=== PATIENT | female | born 1980 | race Caucasian/White ===

== ENCOUNTER 2016-07-17 09:28 | Emergency (ER) | payer SELFPAY ==
[2016-07-17] MEDS ORDERED: diphenhydrAMINE 50 MG/ML SDV IVPUSH ONE (10:14)
--- NOTE | 2016-07-17 10:18 | EDM.PDOC ---
ED HPI GENERAL MEDICAL PROBLEM - General Chief Complaint: Allergic Reaction Stated Complaint: SWELLING EVERYWHERE Time Seen by Provider: 07/17/16 09:29 Source of Information: Reports: Patient History Limitations: Reports: No limitations - History of Present Illness INITIAL COMMENTS - FREE TEXT/NARRATIVE: History of present illness: [] Patient began having rash all over with itching this morning is not aware of anything that she is allergic to has not reacted this way in the past. She denies any difficulty swallowing or speaking. She states she did have one brief episode of sharp chest pain that has since resolved. Review of systems: As per history of present illness and below otherwise all systems reviewed and negative. Past medical history: As per history of present illness and as reviewed below otherwise noncontributory. Surgical history: As per history of present illness and as reviewed below otherwise noncontributory. Social history: No reported history of drug or alcohol abuse. Family history: As per history of present illness and as reviewed below otherwise noncontributory. Physical exam: General: Well developed, well nourished in NAD HEENT: Atraumatic, normocephalic, pupils reactive, negative for conjunctival pallor or scleral icterus, mucous membranes moist, throat clear, neck supple, nontender, trachea midline. Lungs: Clear to auscultation, breath sounds equal bilaterally, chest nontender. Heart: S1S2, regular, negative for clicks, rubs, or JVD. Abdomen: Soft, nondistended, nontender. Negative for masses or hepatosplenomegaly. Negative for costovertebral tenderness. Pelvis: Stable nontender. Genitourinary: Deferred. Rectal: Deferred. Extremities: Atraumatic, negative for cords or calf pain. Neurovascular unremarkable. Neuro: Awake, alert, oriented. Cranial nerves II through XII unremarkable. Cerebellum unremarkable. Motor and sensory unremarkable throughout. Exam nonfocal. Diagnostics: [] Therapeutics: [] Benadryl Impression: [] Allergic reaction unknown etiology Plan: [] In her job 4 hours followup PMD return if symptoms worsen or change Definitive disposition and diagnosis as appropriate pending reevaluation and review of above. - Related Data Allergies Allergy/AdvReac Type Severity Reaction Status Date / Time No Known Allergies Allergy Verified 07/17/16 09:35 Home Meds: Home Meds . [No Known Home Meds] 04/16/14 [History] Past Medical History - Past Health History Medical/Surgical History: Denies Medical/Surgical History HEENT History: Reports: None Cardiovascular History: Reports: None Respiratory History: Reports: None Gastrointestinal History: Reports: None Genitourinary History: Reports: None BRAND LEAD History: Reports: Endometriosis, Musculoskeletal History: Reports: None Neurological History: Reports: None Psychiatric History: Reports: None Endocrine/Metabolic History: Reports: None Hematologic History: Reports: None Immunologic History: Reports: None Oncologic (Cancer) History: Reports: None Dermatologic History: Reports: None - Infectious Disease History Infectious Disease History: Reports: Chicken pox - Past Surgical History Head Surgeries/Procedures: Reports: None HEENT Surgical History: Reports: Oral surgery Other HEENT Surgeries/Procedures: wisdom teeth extraction Cardiovascular Surgical History: Reports: None Respiratory Surgical History: Reports: None GI Surgical History: Reports: None Female Surgical History: Reports: None Endocrine Surgical History: Reports: None Neurological Surgical History: Reports: None Musculoskeletal Surgical History: Reports: None Oncologic Surgical History: Reports: None Dermatological Surgical History: Reports: None Social & Family History - Family History Family Medical History: Noncontributory Musculoskeletal: Reports: Arthritis Neurological: Reports: Alzheimers disease Endocrine/Metabolic: Reports: Diabetes, type I, Diabetes, type II - Tobacco Use Smoking Status *Q: Never Smoker Years of Tobacco use: 10 Used Tobacco, but Quit: Yes Month Tobacco Last Used: 3 mos ago Second Hand Smoke Exposure: No - Alcohol Use Days Per Week of Alcohol Use: 0 - Recreational Drug Use Recreational Drug Use: No Drug Use in Last 12 Months: No ED ROS ALLERGIC REACTION - Review of Systems Review Of Systems: See Below (See history of present illness) ED EXAM GENERAL NO PERIP PULSE - Physical Exam Exam: See Below (See history of present illness) Course - Vital Signs Last Recorded V/S: Last Vital Signs Temp 36.8 C 07/17/16 09:33 Pulse 134 H 07/17/16 09:33 Resp 18 07/17/16 09:33 BP 122/81 07/17/16 09:33 Pulse Ox 94 L 07/17/16 09:33 - Orders/Labs/Meds Orders: Active Orders 24 hr Category Date Time Status diphenhydrAMINE [Benadryl] Med 07/17/16 10:14 Once 50 mg IVPUSH ONETIME ONE Departure - Departure Time of Disposition: 10:16 Disposition: Home, Self-Care 01 Condition: good Clinical Impression: Allergic reaction Qualifiers: Encounter type: initial encounter Qualified Code(s): T78.40XA - Allergy, unspecified, initial encounter - Discharge Information Additional Instructions: The following information is given to patients seen in the emergency department who are being discharged to home. This information is to outline your options for follow-up care. We provide all patients seen in our emergency department with a follow-up referral. The need for follow-up, as well as the timing and circumstances, are variable depending upon the specifics of your emergency department visit. If you don't have a primary care physician on staff, we will provide you with a referral. We always advise you to contact your personal physician following an emergency department visit to inform them of the circumstance of the visit and for follow-up with them and/or the need for any referrals to a consulting specialist. The emergency department will also refer you to a specialist when appropriate. This referral assures that you have the opportunity for follow-up care with a specialist. All of these measure are taken in an effort to provide you with optimal care, which includes your follow-up. Under all circumstances we always encourage you to contact your private physician who remains a resource for coordinating your care. When calling for follow-up care, please make the office aware that this follow-up is from your recent emergency room visit. If for any reason you are refused follow-up, please contact the [facility] Emergency Department at and asked to speak to the emergency department charge nurse. Benadryl one tablet every 4 hours as needed for itching [facility] [address] [place] [id number] - My Orders Last 24 Hours: My Active Orders 07/17/16 10:14 diphenhydrAMINE [Benadryl] 50 mg IVPUSH ONETIME ONE - Assessment/Plan Last 24 Hours: My Active Orders 07/17/16 10:14 diphenhydrAMINE [Benadryl] 50 mg IVPUSH ONETIME ONE Departure - Departure Time of Disposition: 10:17 Disposition: Home, Self-Care 01 Condition: good Clinical Impression: Allergic reaction Qualifiers: Encounter type: initial encounter Qualified Code(s): T78.40XA - Allergy, unspecified, initial encounter Additional Instructions: The following information is given to patients seen in the emergency department who are being discharged to home. This information is to outline your options for follow-up care. We provide all patients seen in our emergency department with a follow-up referral. The need for follow-up, as well as the timing and circumstances, are variable depending upon the specifics of your emergency department visit. If you don't have a primary care physician on staff, we will provide you with a referral. We always advise you to contact your personal physician following an emergency department visit to inform them of the circumstance of the visit and for follow-up with them and/or the need for any referrals to a consulting specialist. The emergency department will also refer you to a specialist when appropriate. This referral assures that you have the opportunity for follow-up care with a specialist. All of these measure are taken in an effort to provide you with optimal care, which includes your follow-up. Under all circumstances we always encourage you to contact your private physician who remains a resource for coordinating your care. When calling for follow-up care, please make the office aware that this follow-up is from your recent emergency room visit. If for any reason you are refused follow-up, please contact the [facility] Emergency Department at and asked to speak to the emergency department charge nurse. Benadryl one tablet every 4 hours as needed for itching [facility] [address] [place] [id number]
[2016-07-17] MEDS ORDERED: diphenhydrAMINE 12.5 MG/5 ML Liquid 5 ML UD Cup PO ONE (10:40)
[2016-07-17] MEDS ORDERED: diphenhydrAMINE 25 MG Cap PO ONE (10:42)
[2016-07-17 11:52] VITALS: BP 102/65
== END 2016-07-17 11:20 | disposition home or self-care (01) ==
LOC: MW.ED 09:28
DX: R21 Rash and other nonspecific skin eruption (principal); T78.40XA Allergy, unspecified, initial encounter
CPT/HCPCS: 36415; 84484; 93005; 99283; A9270; 99282

== ENCOUNTER 2018-11-18 09:32 | Emergency (ER) | payer MEDICAID ==
[2018-11-18 10:11] VITALS: BP 127/58; PULSE 109
--- NOTE | 2018-11-18 11:38 | EDM.PDOC ---
ED HPI GENERAL MEDICAL PROBLEM - General Chief Complaint: Fever Stated Complaint: SICK W/ FEVER AND MIGRAINES 4 DAYS Time Seen by Provider: 11/18/18 11:16 Source of Information: Reports: Patient History Limitations: Reports: No Limitations - History of Present Illness INITIAL COMMENTS - FREE TEXT/NARRATIVE: History of present illness: []Patient has had a headache, and facial pain 2 days. She's had fevers and feeling generally unwell. Has a history of migraines and this does not feel similar. She states at night she's having wheezing when she lays down and a cough. Review of systems: As per history of present illness and below otherwise all systems reviewed and negative. Past medical history: As per history of present illness and as reviewed below otherwise noncontributory. Surgical history: As per history of present illness and as reviewed below otherwise noncontributory. Social history: No reported history of drug or alcohol abuse. Family history: As per history of present illness and as reviewed below otherwise noncontributory. Physical exam: General: Well developed, well nourished in NAD HEENT: Atraumatic, normocephalic, pupils reactive, negative for conjunctival pallor or scleral icterus, mucous membranes moist, throat clear, no erythema, neck supple, nontender, trachea midline. Positive tenderness to palpation over maxillary sinuses, right TM clear left TM with cerumen impaction Lungs: Clear to auscultation, breath sounds equal bilaterally, chest nontender. No wheezing at this time Heart: S1S2, regular, negative for clicks, rubs, or JVD. Abdomen: NABS, Soft, nondistended, nontender. Negative for masses or hepatosplenomegaly. Negative for costovertebral tenderness. Pelvis: Stable nontender. Genitourinary: Deferred. Rectal: Deferred. Extremities: Atraumatic, negative for cords or calf pain. Neurovascular unremarkable. Neuro: Awake, alert, oriented. Cranial nerves II through XII unremarkable. Cerebellum unremarkable. Motor and sensory unremarkable throughout. Exam nonfocal. Skin:warm and dry Diagnostics: None Therapeutics: Declined pain meds ED Course: Stable Impression: Acute Sinusitis with URI Prescriptions: Amoxicillin, albuterol, tramadol Plan: Take meds as directed, follow up with your primary care physician, return to ER if symptoms worsen or change. Definitive disposition and diagnosis as appropriate pending reevaluation and review of above. Head Pain Score (Numeric/FACES): 8 - Related Data Allergies Allergy/AdvReac Type Severity Reaction Status Date / Time No Known Allergies Allergy Verified 11/18/18 10:07 Home Meds: Home Meds Albuterol [Ventolin HFA] 2 puff INH Q4HR PRN #1 inhaler 11/18/18 [Rx] Amoxicillin 500 mg PO TID #21 capsule 11/18/18 [Rx] traMADol HCl [Tramadol HCl] 50 mg PO Q6H PRN #16 tablet 11/18/18 [Rx] Past Medical History - Past Health History Medical/Surgical History: Denies Medical/Surgical History HEENT History: Reports: None Cardiovascular History: Reports: None Respiratory History: Reports: None Gastrointestinal History: Reports: None Genitourinary History: Reports: None P[employer]ER [employer]AG [employer]ER History: Reports: Endometriosis, Musculoskeletal History: Reports: None Neurological History: Reports: None Psychiatric History: Reports: None Endocrine/Metabolic History: Reports: None Hematologic History: Reports: None Immunologic History: Reports: None Oncologic (Cancer) History: Reports: None Dermatologic History: Reports: None - Infectious Disease History Infectious Disease History: Reports: Chicken Pox - Past Surgical History Head Surgeries/Procedures: Reports: None HEENT Surgical History: Reports: Oral Surgery Cardiovascular Surgical History: Reports: None Respiratory Surgical History: Reports: None GI Surgical History: Reports: None Female Surgical History: Reports: None Endocrine Surgical History: Reports: None Neurological Surgical History: Reports: None Musculoskeletal Surgical History: Reports: None Oncologic Surgical History: Reports: None Dermatological Surgical History: Reports: None Social & Family History - Family History Family Medical History: Noncontributory Musculoskeletal: Reports: Arthritis Neurological: Reports: Alzheimers Disease Endocrine/Metabolic: Reports: Diabetes, Type I, Diabetes, type II - Tobacco Use Smoking Status *Q: Never Smoker Second Hand Smoke Exposure: No - Caffeine Use Caffeine Use: Reports: None - Recreational Drug Use Recreational Drug Use: No ED ROS ENT - Review of Systems Review Of Systems: See Below ED EXAM, ENT - Physical Exam Exam: See Below Course - Vital Signs Last Recorded V/S: Last Vital Signs Temp 99.7 F 11/18/18 10:08 Pulse 109 H 11/18/18 10:08 Resp 16 11/18/18 10:08 BP 127/58 L 11/18/18 10:08 Pulse Ox 95 11/18/18 10:08 Departure - Departure Time of Disposition: 11:37 Disposition: Home, Self-Care 01 Condition: Good Clinical Impression: Acute sinusitis Qualifiers: Sinusitis location: maxillary Recurrence: non-recurrent Qualified Code(s): J01.00 - Acute maxillary sinusitis, unspecified - Discharge Information *PRESCRIPTION DRUG MONITORING PROGRAM REVIEWED*: No *COPY OF PRESCRIPTION DRUG MONITORING REPORT IN PATIENT CODY: No Prescriptions: Albuterol [Ventolin HFA] 2 puff INH Q4HR PRN #1 inhaler PRN Reason: Shortness Of Breath Amoxicillin 500 mg PO TID #21 capsule traMADol HCl [Tramadol HCl] 50 mg PO Q6H PRN #16 tablet PRN Reason: Pain Referrals: Tiesha Cavazos MD [Primary Care Provider] - Forms: ED Department Discharge Additional Instructions: The following information is given to patients seen in the emergency department who are being discharged to home. This information is to outline your options for follow-up care. We provide all patients seen in our emergency department with a follow-up referral. The need for follow-up, as well as the timing and circumstances, are variable depending upon the specifics of your emergency department visit. If you don't have a primary care physician on staff, we will provide you with a referral. We always advise you to contact your personal physician following an emergency department visit to inform them of the circumstance of the visit and for follow-up with them and/or the need for any referrals to a consulting specialist. The emergency department will also refer you to a specialist when appropriate. This referral assures that you have the opportunity for follow-up care with a specialist. All of these measure are taken in an effort to provide you with optimal care, which includes your follow-up. Under all circumstances we always encourage you to contact your private physician who remains a resource for coordinating your care. When calling for follow-up care, please make the office aware that this follow-up is from your recent emergency room visit. If for any reason you are refused follow-up, please contact the [facility] Emergency Department at and asked to speak to the emergency department charge nurse. Take meds as directed, follow up with your primary care physician, return to ER if symptoms worsen or change. [facility] [address] [place] [id number]
== END 2018-11-18 11:52 | disposition home or self-care (01) ==
LOC: MW.ED 09:32
DX: J01.00 Acute maxillary sinusitis, unspecified (principal); J06.9 Acute upper respiratory infection, unspecified
CPT/HCPCS: 99283

== ENCOUNTER 2018-11-20 11:55 | Observation (INO) | payer MEDICAID ==
[2018-11-20] MEDS ORDERED: Sodium Chloride 0.9% 1,000 ML IV ONE (12:24)
[2018-11-20] MEDS ORDERED: Sodium Chloride 0.9% 10 ML Syringe FLUSH PRN (12:24)
[2018-11-20] MEDS ORDERED: Ketorolac 30 MG/ML SDV IVPUSH ONE (12:24)
[2018-11-20] MEDS ORDERED: Sodium Chloride 0.9% 2.5 ML Syringe FLUSH PRN (12:24)
--- NOTE | 2018-11-20 13:29 | EDM.PDOC ---
ED HPI GENERAL MEDICAL PROBLEM - General Chief Complaint: Headache Stated Complaint: SEVERE HEADACHE NAUSEA VOMITING Time Seen by Provider: 11/20/18 11:56 Source of Information: Reports: Patient History Limitations: Reports: No Limitations - History of Present Illness INITIAL COMMENTS - FREE TEXT/NARRATIVE: History of present illness: []Patient presents with migraine headache, cough and generally feeling unwell. She was here 2 days ago with the same symptoms and was treated with amoxicillin , albuterol and tramadol found to have sinusitis on physical exam. Patient states she has worsening cough and shortness of breath, body aches and diffuse headache. She denies any vomiting, diarrhea or abdominal pain. Review of systems: As per history of present illness and below otherwise all systems reviewed and negative. Past medical history: As per history of present illness and as reviewed below otherwise noncontributory. Surgical history: As per history of present illness and as reviewed below otherwise noncontributory. Social history: No reported history of drug or alcohol abuse. Family history: As per history of present illness and as reviewed below otherwise noncontributory. Physical exam: General: Well developed, well nourished in NAD HEENT: Atraumatic, normocephalic, pupils reactive, negative for conjunctival pallor or scleral icterus, mucous membranes moist, throat clear, neck supple, nontender, trachea midline. TMs clear, oropharynx is clear Lungs: Bilaterally bilaterally, no chest wall retractions or respiratory distress chest nontender. Heart: S1S2, regular, negative for clicks, rubs, or JVD. Abdomen: NABS, Soft, nondistended, nontender. Negative for masses or hepatosplenomegaly. Negative for costovertebral tenderness. Pelvis: Stable nontender. Genitourinary: Deferred. Rectal: Deferred. Extremities: Atraumatic, negative for cords or calf pain. Neurovascular unremarkable. Neuro: Awake, alert, oriented. Cranial nerves II through XII unremarkable. Cerebellum unremarkable. Motor and sensory unremarkable throughout. Exam nonfocal. Skin:warm and dry Diagnostics: CT, chemistry, chest x-ray, blood cultures, influenza negative Therapeutics: IV hydration, Toradol, morphine, Levaquin ED Course: Stable Impression: Lower lobe pneumonia Prescriptions: None Plan: Admit to hospital for IV antibiotics, pain control further workup as needed. Definitive disposition and diagnosis as appropriate pending reevaluation and review of above. Headache Pain Score (Numeric/FACES): 9 - Related Data Allergies Allergy/AdvReac Type Severity Reaction Status Date / Time No Known Allergies Allergy Verified 11/20/18 12:18 Home Meds: Home Meds Albuterol [Ventolin HFA] 2 puff INH Q4HR PRN #1 inhaler 11/18/18 [Rx] Amoxicillin 500 mg PO TID #21 capsule 11/18/18 [Rx] traMADol HCl [Tramadol HCl] 50 mg PO Q6H PRN #16 tablet 11/18/18 [Rx] Past Medical History - Past Health History Medical/Surgical History: Denies Medical/Surgical History HEENT History: Reports: None Cardiovascular History: Reports: None Respiratory History: Reports: None Gastrointestinal History: Reports: None Genitourinary History: Reports: None [employer] History: Reports: Endometriosis, Musculoskeletal History: Reports: None Neurological History: Reports: None Psychiatric History: Reports: None Endocrine/Metabolic History: Reports: None Hematologic History: Reports: None Immunologic History: Reports: None Oncologic (Cancer) History: Reports: None Dermatologic History: Reports: None - Infectious Disease History Infectious Disease History: Reports: Chicken Pox - Past Surgical History Head Surgeries/Procedures: Reports: None HEENT Surgical History: Reports: Oral Surgery Cardiovascular Surgical History: Reports: None Respiratory Surgical History: Reports: None GI Surgical History: Reports: None Female Surgical History: Reports: None Endocrine Surgical History: Reports: None Neurological Surgical History: Reports: None Musculoskeletal Surgical History: Reports: None Oncologic Surgical History: Reports: None Dermatological Surgical History: Reports: None Social & Family History - Family History Family Medical History: Noncontributory Musculoskeletal: Reports: Arthritis Neurological: Reports: Alzheimers Disease Endocrine/Metabolic: Reports: Diabetes, Type I, Diabetes, type II - Tobacco Use Smoking Status *Q: Never Smoker - Caffeine Use Caffeine Use: Reports: None - Recreational Drug Use Recreational Drug Use: No ED ROS GENERAL - Review of Systems Review Of Systems: See Below ED EXAM, GENERAL - Physical Exam Exam: See Below Course - Vital Signs Last Recorded V/S: Last Vital Signs Temp 97.7 F 11/20/18 12:16 Pulse 100 11/20/18 13:49 Resp 18 11/20/18 13:49 BP 114/85 11/20/18 13:49 Pulse Ox 95 11/20/18 13:49 - Orders/Labs/Meds Orders: Active Orders 24 hr Category Date Time Status Patient Status [ADT] Stat ADT 11/20/18 13:47 Active CULTURE BLOOD [BC] Stat Lab 11/20/18 13:00 Received CULTURE BLOOD [BC] Stat Lab 11/20/18 13:17 Received Levofloxacin/Dextrose 5%-Water [Levaquin in D5W 500 MG/ Med 11/20/18 13:42 Active 100 ML] 500 mg Premix Bag 1 bag IV ONETIME Sodium Chloride 0.9% [Saline Flush] Med 11/20/18 12:24 Active 10 ml FLUSH ASDIRECTED PRN Sodium Chloride 0.9% [Saline Flush] Med 11/20/18 12:24 Active 2.5 ml FLUSH ASDIRECTED PRN Blood Culture x2 Reflex Set [OM.PC] Stat Oth 11/20/18 12:24 Ordered Saline Lock Insert [OM.PC] Stat Oth 11/20/18 12:23 Ordered Medication Orders Levofloxacin/Dextrose 500 mg/ (Premix) 100 mls @ 100 mls/hr IV ONETIME ONE Stop: 11/20/18 14:41 Sodium Chloride (Saline Flush) 10 ml FLUSH ASDIRECTED PRN PRN Reason: Keep Vein Open Last Admin: 11/20/18 12:46 Dose: 10 ml Sodium Chloride (Saline Flush) 2.5 ml FLUSH ASDIRECTED PRN PRN Reason: Keep Vein Open Last Admin: 11/20/18 12:46 Dose: 2.5 ml Labs: Laboratory Tests 11/20/18 11/20/18 Range/Units 12:24 12:24 WBC 7.38 (4.0-11.0) K/uL RBC 4.42 (4.30-5.90) M/uL Hgb 12.5 (12.0-16.0) g/dL Hct 36.7 (36.0-46.0) % MCV 83.0 (80.0-98.0) fL MCH 28.3 (27.0-32.0) pg MCHC 34.1 (31.0-37.0) g/dL RDW Std Deviation 39.3 (28.0-62.0) fl RDW Coeff of Juliet 13 (11.0-15.0) % Plt Count 269 (150-400) K/uL MPV 9.70 (7.40-12.00) fL Neut % (Auto) 83.4 H (48.0-80.0) % Lymph % (Auto) 8.3 L (16.0-40.0) % Russell % (Auto) 6.9 (0.0-15.0) % Eos % (Auto) 1.1 (0.0-7.0) % Baso % (Auto) 0.3 (0.0-1.5) % Neut # (Auto) 6.2 H (1.4-5.7) K/uL Lymph # (Auto) 0.6 (0.6-2.4) K/uL Russell # (Auto) 0.5 (0.0-0.8) K/uL Eos # (Auto) 0.1 (0.0-0.7) K/uL Baso # (Auto) 0.0 (0.0-0.1) K/uL Nucleated RBC % 0.0 /100WBC Nucleated RBCs # 0 K/uL Sodium 137 (136-145) mmol/L Potassium 3.6 (3.5-5.1) mmol/L Chloride 102 (98-107) mmol/L Carbon Dioxide 22.4 (21.0-32.0) mmol/L BUN 7 (7.0-18.0) mg/dL Creatinine 0.8 (0.6-1.0) mg/dL Est Cr Clr Drug Dosing 83.14 mL/min Estimated GFR (MDRD) > 60.0 ml/min Glucose 111 H (74-106) mg/dL Calcium 9.5 (8.5-10.1) mg/dL Total Bilirubin 0.2 (0.2-1.0) mg/dL AST 53 H (15-37) IU/L ALT 56 (14-63) IU/L Alkaline Phosphatase 102 (46-116) U/L Total Protein 7.2 (6.4-8.2) g/dL Albumin 2.9 L (3.4-5.0) g/dL Globulin 4.3 H (2.6-4.0) g/dL Albumin/Globulin Ratio 0.7 L (0.9-1.6) Meds: Medications Generic Name Dose Route Start Last Admin Trade Name Freq PRN Reason Stop Dose Admin Levofloxacin/Dextrose 500 mg/ 100 mls @ 100 mls/hr 11/20/18 13:42 Premix IV 11/20/18 14:41 ONETIME ONE Sodium Chloride 10 ml 11/20/18 12:24 11/20/18 12:46 Saline Flush FLUSH 10 ml ASDIRECTED PRN Administration Keep Vein Open Sodium Chloride 2.5 ml 11/20/18 12:24 11/20/18 12:46 Saline Flush FLUSH 2.5 ml ASDIRECTED PRN Administration Keep Vein Open Discontinued Medications Generic Name Dose Route Start Last Admin Trade Name Freq PRN Reason Stop Dose Admin Sodium Chloride 1,000 mls @ 999 mls/hr 11/20/18 12:24 11/20/18 12:45 Normal Saline IV 11/20/18 13:24 999 mls/hr .Bolus ONE Administration Ketorolac Tromethamine 30 mg 11/20/18 12:24 11/20/18 12:46 Toradol IVPUSH 11/20/18 12:25 30 mg ONETIME ONE Administration Morphine Sulfate 4 mg 11/20/18 13:30 11/20/18 13:45 Morphine IVPUSH 11/20/18 13:31 4 mg ONETIME ONE Administration Ondansetron HCl 4 mg 11/20/18 13:30 11/20/18 13:45 Zofran IVPUSH 11/20/18 13:31 4 mg ONETIME ONE Administration Departure - Departure Time of Disposition: 13:59 Disposition: Refer to Observation Condition: Good Clinical Impression: Left lower lobe pneumonia Qualifiers: Pneumonia type: due to unspecified organism Qualified Code(s): J18.1 - Lobar pneumonia, unspecified organism - Discharge Information *PRESCRIPTION DRUG MONITORING PROGRAM REVIEWED*: Not Applicable *COPY OF PRESCRIPTION DRUG MONITORING REPORT IN PATIENT CODY: Not Applicable Referrals: PCP,None [Primary Care Provider] - Forms: ED Department Discharge - My Orders Last 24 Hours: My Active Orders 11/20/18 12:23 Saline Lock Insert [OM.PC] Stat 11/20/18 12:24 Sodium Chloride 0.9% [Saline Flush] 10 ml FLUSH ASDIRECTED PRN Sodium Chloride 0.9% [Saline Flush] 2.5 ml FLUSH ASDIRECTED PRN Blood Culture x2 Reflex Set [OM.PC] Stat 11/20/18 13:00 CULTURE BLOOD [BC] Stat 11/20/18 13:17 CULTURE BLOOD [BC] Stat 11/20/18 13:42 Levofloxacin/Dextrose 5%-Water [Levaquin in D5W 500 MG/100 ML] 500 mg Premix Bag 1 bag IV ONETIME 11/20/18 13:47 Patient Status [ADT] Stat - Assessment/Plan Last 24 Hours: My Active Orders 11/20/18 12:23 Saline Lock Insert [OM.PC] Stat 11/20/18 12:24 Sodium Chloride 0.9% [Saline Flush] 10 ml FLUSH ASDIRECTED PRN Sodium Chloride 0.9% [Saline Flush] 2.5 ml FLUSH ASDIRECTED PRN Blood Culture x2 Reflex Set [OM.PC] Stat 11/20/18 13:00 CULTURE BLOOD [BC] Stat 11/20/18 13:17 CULTURE BLOOD [BC] Stat 11/20/18 13:42 Levofloxacin/Dextrose 5%-Water [Levaquin in D5W 500 MG/100 ML] 500 mg Premix Bag 1 bag IV ONETIME 11/20/18 13:47 Patient Status [ADT] Stat
[2018-11-20] MEDS ORDERED: Morphine 4 MG/ML Syringe IVPUSH ONE (13:30)
[2018-11-20] MEDS ORDERED: Ondansetron 4 MG/2 ML SDV IVPUSH ONE (13:30)
[2018-11-20 13:41] LABS: BLOOD UREA NITROGEN,BUN 7 mg/dL (7.0-18.0); CARBON DIOXIDE,CO2 22.4 mmol/L (21.0-32.0); CHLORIDE,CL 102 mmol/L (98-107); GLUCOSE RANDOM 111 mg/dL (74-106); POTASSIUM,K 3.6 mmol/L (3.5-5.1); SODIUM,NA 137 mmol/L (136-145)
[2018-11-20] MEDS ORDERED: Levofloxacin/Dextrose 5%-Water 500 MG in Premix Bag 1 BAG IV ONE (13:42)
--- NOTE | 2018-11-20 13:52 | CR ---
INDICATION: Fever, cough, congestion TECHNIQUE: Chest radiograph 2 views COMPARISON: None FINDINGS: Mediastinum: The mediastinum is normal in appearance. The heart silhouette is normal in size and morphology. Lung: Moderate nodular consolidation is present in the left lung base, consistent with bronchopneumonia. No sign of pleural effusion seen. No pneumothorax is identified. IMPRESSION: 1. Moderate nodular consolidation is present in the left lung base, consistent with bronchopneumonia. Dictated by Orlando Ames MD @ 11/20/2018 1:50:08 PM Dictated by: Orlando Ames MD @ 11/20/2018 13:50:10 (Electronically Signed)
[2018-11-20] MEDS ORDERED: Levofloxacin/Dextrose 5%-Water 250 MG in Premix Bag 1 BAG IV ONE (14:07)
[2018-11-20] MEDS ORDERED: Sodium Chloride 0.9% 1,000 ML IV SCH (14:15)
[2018-11-20] MEDS ORDERED: Ibuprofen 400 MG Tab PO PRN (14:16)
[2018-11-20] MEDS ORDERED: Pantoprazole 40 MG in Sodium Chloride 0.9% 10 ML IV ONE (14:16)
[2018-11-20] MEDS ORDERED: Ondansetron 4 MG/2 ML SDV IVPUSH PRN (14:16)
[2018-11-20] MEDS ORDERED: Albuterol/Ipratropium 3.0-0.5 MG/3 ML Neb Soln NEB PRN (14:16)
[2018-11-20] MEDS ORDERED: Acetaminophen 325 MG Tab PO PRN (14:16)
--- NOTE | 2018-11-20 14:26 | PCM.HP.2 ---
<Miranda Oropeza M - Last Filed: 11/20/18 15:14> H&P History of Present Illness - General Date of Service: 11/20/18 Admit Problem/Dx: Admission Diagnosis/Problem Admission Diagnosis/Problem Pneumonia Source of Information: Patient History Limitations: Reports: No Limitations - History of Present Illness Initial Comments - Free Text/Narative: This 38 year old female with no significant medical history presented to the ED today with concerns of headache, coughing, N/V and generally feeling unwell. She reports this symptoms started approximately a week ago with sinus congestion , ear pain, sore throat. This has progressed to wheezing in her chest, coughing. She reports she was seen in the ED 2 days ago, given antibiotics and discharged home. She took meds for 2 days, but then this morning started throwing up when she woke up. She then started having a bad headache, which is all over her head, moved down her neck and in her ear. She reported some blurred vision during the headache, but after Toradol in the ED she is feeling much better. She reports one migraine headache in her life, last year which felt the same. She reports no stiff neck. Mild sore throat with hoarse voice, coughing and wheezing. Non productive cough though. She reports nausea and vomiting this morning. No abdominal or flank pain. No chest pain or palpitations. No urinary concerns, though she mentions a couple days ago there was some burning. Reports being otherwise healthy. Former smoker, quit 5 years ago. No vaping history. No alcohol or recreational drug use. No history of HTN, CAD, DM or asthma or COPD. In the ED CBC WNL. BMP WNL. Influenza negative. lactic acid 1.0. BC obtained and pending. CXR revealed nodular consolidation to L lung base. HR elevated 100- 110s, BP stable. She was treated with Levaquin 500 mg, Morphine, Toradol and NS bolus. She will be admitted with CAP. Headache Pain Score (Numeric/FACES): 9 - Related Data Allergies/Adverse Reactions: Allergies Allergy/AdvReac Type Severity Reaction Status Date / Time No Known Allergies Allergy Verified 11/20/18 14:20 Home Medications: Home Meds Norethindrone AC-Eth Estradiol [Norethind-Eth Estrad 1-0.02 mg] 1 each PO ASDIRECTED 11/20/18 [History] Past Medical History - Past Health History Medical/Surgical History: Denies Medical/Surgical History HEENT History: Reports: None. Denies: Hard of Hearing Cardiovascular History: Reports: None. Denies: Afib, Blood Clots/VTE/DVT, CAD, High Cholesterol, Hypertension, DE Respiratory History: Reports: None. Denies: Asthma, COPD, Sleep Apnea Gastrointestinal History: Reports: None. Denies: GI Bleed Genitourinary History: Reports: None. Denies: Renal Calculus, UTI, Recurrent [employer] History: Reports: Endometriosis, (x4) Musculoskeletal History: Reports: None Neurological History: Reports: None. Denies: CVA, Migraines, TIA Psychiatric History: Reports: None Endocrine/Metabolic History: Reports: Obesity/BMI 30+. Denies: Diabetes, Type II, Hypothyroidism Hematologic History: Reports: None Immunologic History: Reports: None Oncologic (Cancer) History: Reports: None Dermatologic History: Reports: None - Infectious Disease History Infectious Disease History: Reports: Chicken Pox - Past Surgical History Head Surgeries/Procedures: Reports: None HEENT Surgical History: Reports: Oral Surgery Cardiovascular Surgical History: Reports: None Respiratory Surgical History: Reports: None GI Surgical History: Reports: None Female Surgical History: Reports: None Endocrine Surgical History: Reports: None Neurological Surgical History: Reports: None Musculoskeletal Surgical History: Reports: None Oncologic Surgical History: Reports: None Dermatological Surgical History: Reports: None Social & Family History - Family History Family Medical History: Noncontributory Musculoskeletal: Reports: Arthritis Neurological: Reports: Alzheimers Disease Endocrine/Metabolic: Reports: Diabetes, Type I, Diabetes, type II - Tobacco Use Smoking Status *Q: Never Smoker - Caffeine Use Caffeine Use: Reports: None - Alcohol Use Alcohol Use History: No - Recreational Drug Use Recreational Drug Use: No - Living Situation & Occupation Living situation: Reports: H&P Review of Systems - Review of Systems: Review Of Systems: See Below General: Reports: Fever, Chills, Malaise HEENT: Reports: Headaches, Sinus Congestion, Sore Throat. Denies: Vertigo, Visual Changes Pulmonary: Reports: Shortness of Breath, Wheezing, Cough. Denies: Sputum, Hemoptysis Cardiovascular: Reports: No Symptoms. Denies: Chest Pain, Lightheadedness, Syncope Gastrointestinal: Reports: Nausea, Vomiting. Denies: Abdominal Pain, Black Stool, Bloody Stool Genitourinary: Reports: Dysuria. Denies: Frequency, Flank Pain Musculoskeletal: Denies: Neck Pain Skin: Reports: No Symptoms Psychiatric: Reports: No Symptoms Neurological: Reports: No Symptoms Hematologic/Lymphatic: Reports: No Symptoms Immunologic: Reports: No Symptoms Exam - Exam Exam: See Below - Vital Signs Vital Signs: Last Vital Signs Temp 98.4 F 11/20/18 14:15 Pulse 101 H 11/20/18 14:15 Resp 16 11/20/18 14:15 BP 120/72 11/20/18 14:15 Pulse Ox 95 11/20/18 14:15 Weight: 81.647 kg - Exam General: Alert, Oriented, Cooperative HEENT: Conjunctiva Clear, Hearing Intact, Mucosa Moist & [place], Pupils Equal, Pupils Reactive. No: Posterior Pharynx Clear (erythematous, no purulence noted. ) Neck: Full Range of Motion (no nuchal rigidity). No: Lymphadenopathy Lungs: Normal Respiratory Effort, Crackles (L base), Other (dry coughing frequently) Cardiovascular: Regular Rate, Regular Rhythm, Normal S1, Normal S2. No: Systolic Murmur GI/Abdominal Exam: Normal Bowel Sounds, Soft, Non-Tender Extremities: Normal Inspection, Normal Range of Motion, Non-Tender, No Pedal Edema Neuro Extensive - Mental Status: Alert, Oriented x3 Neuro Extensive - Motor, Sensory, Reflexes: CN II-XII Intact Psychiatric: Alert, Normal Affect, Normal Mood - Patient Data Lab Results Last 24 hrs: Laboratory Results - last 24 hr 11/20/18 11/20/18 Range/Units 12:24 12:24 WBC 7.38 (4.0-11.0) K/uL RBC 4.42 (4.30-5.90) M/uL Hgb 12.5 (12.0-16.0) g/dL Hct 36.7 (36.0-46.0) % MCV 83.0 (80.0-98.0) fL MCH 28.3 (27.0-32.0) pg MCHC 34.1 (31.0-37.0) g/dL RDW Std Deviation 39.3 (28.0-62.0) fl RDW Coeff of Juliet 13 (11.0-15.0) % Plt Count 269 (150-400) K/uL MPV 9.70 (7.40-12.00) fL Neut % (Auto) 83.4 H (48.0-80.0) % Lymph % (Auto) 8.3 L (16.0-40.0) % [place] % (Auto) 6.9 (0.0-15.0) % Eos % (Auto) 1.1 (0.0-7.0) % Baso % (Auto) 0.3 (0.0-1.5) % Neut # (Auto) 6.2 H (1.4-5.7) K/uL Lymph # (Auto) 0.6 (0.6-2.4) K/uL [place] # (Auto) 0.5 (0.0-0.8) K/uL Eos # (Auto) 0.1 (0.0-0.7) K/uL Baso # (Auto) 0.0 (0.0-0.1) K/uL Nucleated RBC % 0.0 /100WBC Nucleated RBCs # 0 K/uL Sodium 137 (136-145) mmol/L Potassium 3.6 (3.5-5.1) mmol/L Chloride 102 (98-107) mmol/L Carbon Dioxide 22.4 (21.0-32.0) mmol/L BUN 7 (7.0-18.0) mg/dL Creatinine 0.8 (0.6-1.0) mg/dL Est Cr Clr Drug Dosing 83.14 mL/min Estimated GFR (MDRD) > 60.0 ml/min Glucose 111 H (74-106) mg/dL Calcium 9.5 (8.5-10.1) mg/dL Total Bilirubin 0.2 (0.2-1.0) mg/dL AST 53 H (15-37) IU/L ALT 56 (14-63) IU/L Alkaline Phosphatase 102 (46-116) U/L Total Protein 7.2 (6.4-8.2) g/dL Albumin 2.9 L (3.4-5.0) g/dL Globulin 4.3 H (2.6-4.0) g/dL Albumin/Globulin Ratio 0.7 L (0.9-1.6) Result Diagrams: 11/20/18 12:24 11/20/18 12:24 Brett Results Last 24 hrs: Microbiology 11/20/18 12:40 Influenza Type A Antigen Screen - Final Nasopharyngeal Swab NEGATIVE INFLUENZA A VIRUS AG REFERENCE RANGE: NEGATIVE Influenza Type B Antigen Screen - Final NEGATIVE INFLUENZA B VIRUS AG REFERENCE RANGE: NEGATIVE *Q Meaningful Use (ADM) - VTE Risk Assess *Q Each Risk Factor Represents 1 Point: Serious lung disease including pneumonia Total Score 1 Point Risk Factors: 1 Each Risk Factor Represents 2 Points: None Total Score 2 Point Risk Factors: 0 Each Risk Factor Represents 3 Points: None Total Score 3 Point Risk Factors: 0 Each Risk Factor Represents 5 Points: None Total Score 5 Point Risk Factors: 0 Venous Thromboembolism Risk Factor Score *Q: 1 - Problem List (1) Left lower lobe pneumonia SNOMED Code(s): 442218840 ICD Code: J18.1 - LOBAR PNEUMONIA, UNSPECIFIED ORGANISM Status: Acute Current Visit: Yes Qualifiers: Pneumonia type: due to unspecified organism Qualified Code(s): J18.1 - Lobar pneumonia, unspecified organism Problem List Initiated/Reviewed/Updated: Yes Orders Last 24hrs: Active Orders 24 hr Category Date Time Status Patient Status [ADT] Stat ADT 11/20/18 13:47 Active Antiembolic Devices [RC] PER UNIT ROUTINE Care 11/20/18 14:17 Active May Shower [RC] ASDIRECTED Care 11/20/18 14:16 Active Oxygen Therapy [RC] PRN Care 11/20/18 14:16 Active RT Aerosol Therapy [RC] ASDIRECTED Care 11/20/18 14:18 Active RT Incentive Spirometry [RC] Q1HWA Care 11/20/18 14:16 Active Up ad Charmaine [RC] ASDIRECTED Care 11/20/18 14:16 Active VTE/DVT Education [RC] PER UNIT ROUTINE Care 11/20/18 14:16 Active Vital Signs [RC] Q4H Care 11/20/18 14:16 Active Full Liquid Diet [DIET] Diet 11/20/18 Lunch Active CBC WITH AUTO DIFF [HEME] AM Lab 11/21/18 05:11 Ordered COMPREHENSIVE METABOLIC PN,CMP [CHEM] AM Lab 11/21/18 05:11 Ordered CULTURE BLOOD [BC] Stat Lab 11/20/18 13:00 Received CULTURE BLOOD [BC] Stat Lab 11/20/18 13:17 Received CULTURE SPUTUM + SMEAR [RM] Stat Lab 11/20/18 14:16 Ordered HCG QUALITATIVE,SERUM [CHEM] Routine Lab 11/20/18 12:24 Received LACTATE WITH REFLEX [BG] Stat Lab 11/20/18 14:20 Ordered MAGNESIUM [CHEM] AM Lab 11/21/18 05:11 Ordered UA RFX BRETT AND CULT IF INDIC [URIN] Urgent Lab 11/20/18 14:09 Ordered Acetaminophen [Tylenol] Med 11/20/18 14:16 Active 650 mg PO Q4H PRN Albuterol/Ipratropium [DuoNeb 3.0-0.5 MG/3 ML] Med 11/20/18 14:16 Ordered 3 ml NEB Q4HRRT PRN Ibuprofen [Motrin] Med 11/20/18 14:16 Active 400 mg PO Q6H PRN Levofloxacin/Dextrose 5%-Water [Levaquin in D5W 250 MG/ Med 11/20/18 14:07 Active 50 ML] 250 mg Premix Bag 1 bag IV ONETIME Levofloxacin/Dextrose 5%-Water [Levaquin in D5W 500 MG/ Med 11/20/18 13:42 Active 100 ML] 500 mg Premix Bag 1 bag IV ONETIME Levofloxacin/Dextrose 5%-Water [Levaquin in D5W 750 MG/ Med 11/21/18 14:15 Active 150 ML] 750 mg Premix Bag 1 bag IV Q24H Ondansetron [Zofran] Med 11/20/18 14:16 Active 4 mg IVPUSH Q4H PRN Pantoprazole [ProTONIX IV] 40 mg Med 11/20/18 14:16 Ordered Sodium Chloride 0.9% [Normal Saline] 10 ml IV ONETIME Sodium Chloride 0.9% [Normal Saline] 1,000 ml Med 11/20/18 14:15 Active IV ASDIRECTED Sodium Chloride 0.9% [Saline Flush] Med 11/20/18 12:24 Active 10 ml FLUSH ASDIRECTED PRN Sodium Chloride 0.9% [Saline Flush] Med 11/20/18 12:24 Active 2.5 ml FLUSH ASDIRECTED PRN Blood Culture x2 Reflex Set [OM.PC] Stat Oth 11/20/18 12:24 Ordered Saline Lock Insert [OM.PC] Stat Oth 11/20/18 12:23 Ordered Sequential Compression Device [OM.PC] Per Unit Routine Oth 11/20/18 14:16 Ordered Resuscitation Status Routine Resus Stat 11/20/18 14:16 Ordered Medication Orders Acetaminophen (Tylenol) 650 mg PO Q4H PRN PRN Reason: Pain (Mild 1-3)/fever Albuterol/Ipratropium (Duoneb 3.0-0.5 Mg/3 Ml) 3 ml NEB Q4HRRT PRN PRN Reason: Shortness Of Breath/wheezing Levofloxacin/Dextrose 500 mg/ (Premix) 100 mls @ 100 mls/hr IV ONETIME ONE Stop: 11/20/18 14:41 Last Admin: 11/20/18 13:57 Dose: 100 mls/hr Levofloxacin/Dextrose 250 mg/ (Premix) 50 mls @ 50 mls/hr IV ONETIME ONE Stop: 11/20/18 15:06 Levofloxacin/Dextrose 750 mg/ (Premix) 150 mls @ 100 mls/hr IV Q24H GABBIE Sodium Chloride (Normal Saline) 1,000 mls @ 125 mls/hr IV ASDIRECTED GABBIE Pantoprazole Sodium 40 mg/ (Sodium Chloride) 10 mls @ 300 mls/hr IV ONETIME ONE Stop: 11/20/18 14:17 Ibuprofen (Motrin) 400 mg PO Q6H PRN PRN Reason: Pain (mild 1-3) Ondansetron HCl (Zofran) 4 mg IVPUSH Q4H PRN PRN Reason: Nausea Sodium Chloride (Saline Flush) 10 ml FLUSH ASDIRECTED PRN PRN Reason: Keep Vein Open Last Admin: 11/20/18 12:46 Dose: 10 ml Sodium Chloride (Saline Flush) 2.5 ml FLUSH ASDIRECTED PRN PRN Reason: Keep Vein Open Last Admin: 11/20/18 12:46 Dose: 2.5 ml Assessment/Plan Comment:: This 38 year old female admitted with CAP 1. CAP: L lower lobe PNA. Give 250 mg extra of Levaquin to equal 750 mg. Continue this daily. NS 125 ml/hr. Sputum culture as needed. BC pending. IS, Duonebs PRN. No hypoxia noted. IS every 1 hour. Add UA and monitor. Regular diet. Headache better after treatment in ED. Tylenol and Motrin PRN. VTE prophylaxis: SCDs and ambulation Dispo: 1-2 days - Mortality Measure Prognosis:: Good <Jamarcus Burleson - Last Filed: 11/20/18 17:56> H&P History of Present Illness - General Admit Problem/Dx: Admission Diagnosis/Problem Admission Diagnosis/Problem Pneumonia I have seen and examined the patient independently of Miranda Oropeza CNP. I have reviewed and agree with the plan of care as outlined for this patient by her. I have discussed the case with her. Please see orders. Exam - Vital Signs Vital Signs: Last Vital Signs Temp 37.1 C 11/20/18 16:00 Pulse 93 11/20/18 16:00 Resp 20 11/20/18 16:00 BP 117/80 11/20/18 16:00 Pulse Ox 96 11/20/18 16:00 - Patient Data Lab Results Last 24 hrs: Laboratory Results - last 24 hr 11/20/18 11/20/18 11/20/18 Range/Units 12:24 12:24 12:24 WBC 7.38 (4.0-11.0) K/uL RBC 4.42 (4.30-5.90) M/uL Hgb 12.5 (12.0-16.0) g/dL Hct 36.7 (36.0-46.0) % MCV 83.0 (80.0-98.0) fL MCH 28.3 (27.0-32.0) pg MCHC 34.1 (31.0-37.0) g/dL RDW Std Deviation 39.3 (28.0-62.0) fl RDW Coeff of Juliet 13 (11.0-15.0) % Plt Count 269 (150-400) K/uL MPV 9.70 (7.40-12.00) fL Neut % (Auto) 83.4 H (48.0-80.0) % Lymph % (Auto) 8.3 L (16.0-40.0) % [place] % (Auto) 6.9 (0.0-15.0) % Eos % (Auto) 1.1 (0.0-7.0) % Baso % (Auto) 0.3 (0.0-1.5) % Neut # (Auto) 6.2 H (1.4-5.7) K/uL Lymph # (Auto) 0.6 (0.6-2.4) K/uL [place] # (Auto) 0.5 (0.0-0.8) K/uL Eos # (Auto) 0.1 (0.0-0.7) K/uL Baso # (Auto) 0.0 (0.0-0.1) K/uL Nucleated RBC % 0.0 /100WBC Nucleated RBCs # 0 K/uL Lactate (0.20-2.00) mmol/L Sodium 137 (136-145) mmol/L Potassium 3.6 (3.5-5.1) mmol/L Chloride 102 (98-107) mmol/L Carbon Dioxide 22.4 (21.0-32.0) mmol/L BUN 7 (7.0-18.0) mg/dL Creatinine 0.8 (0.6-1.0) mg/dL Est Cr Clr Drug Dosing 83.14 mL/min Estimated GFR (MDRD) > 60.0 ml/min Glucose 111 H (74-106) mg/dL Calcium 9.5 (8.5-10.1) mg/dL Total Bilirubin 0.2 (0.2-1.0) mg/dL AST 53 H (15-37) IU/L ALT 56 (14-63) IU/L Alkaline Phosphatase 102 (46-116) U/L Total Protein 7.2 (6.4-8.2) g/dL Albumin 2.9 L (3.4-5.0) g/dL Globulin 4.3 H (2.6-4.0) g/dL Albumin/Globulin Ratio 0.7 L (0.9-1.6) HCG, Qual NEGATIVE (NEG) Urine Color Urine Appearance Urine pH (5.0-8.0) Ur Specific [place] (1.001-1.035) Urine Protein (NEGATIVE) mg/dL Urine Glucose (UA) (NEGATIVE) mg/dL Urine Ketones (NEGATIVE) mg/dL Urine Occult Blood (NEGATIVE) Urine Nitrite (NEGATIVE) Urine Bilirubin (NEGATIVE) Urine Urobilinogen (<2.0) EU/dL Ur Leukocyte Esterase (NEGATIVE) Urine RBC (0-2/HPF) Urine WBC (0-5/HPF) Ur Epithelial Cells (NONE-FEW) Urine Bacteria (NEGATIVE) Urine Mucus (NONE-MOD) 11/20/18 11/20/18 Range/Units 12:53 15:05 WBC (4.0-11.0) K/uL RBC (4.30-5.90) M/uL Hgb (12.0-16.0) g/dL Hct (36.0-46.0) % MCV (80.0-98.0) fL MCH (27.0-32.0) pg MCHC (31.0-37.0) g/dL RDW Std Deviation (28.0-62.0) fl RDW Coeff of Juliet (11.0-15.0) % Plt Count (150-400) K/uL MPV (7.40-12.00) fL Neut % (Auto) (48.0-80.0) % Lymph % (Auto) (16.0-40.0) % [place] % (Auto) (0.0-15.0) % Eos % (Auto) (0.0-7.0) % Baso % (Auto) (0.0-1.5) % Neut # (Auto) (1.4-5.7) K/uL Lymph # (Auto) (0.6-2.4) K/uL [place] # (Auto) (0.0-0.8) K/uL Eos # (Auto) (0.0-0.7) K/uL Baso # (Auto) (0.0-0.1) K/uL Nucleated RBC % /100WBC Nucleated RBCs # K/uL Lactate 1.0 (0.20-2.00) mmol/L Sodium (136-145) mmol/L Potassium (3.5-5.1) mmol/L Chloride (98-107) mmol/L Carbon Dioxide (21.0-32.0) mmol/L BUN (7.0-18.0) mg/dL Creatinine (0.6-1.0) mg/dL Est Cr Clr Drug Dosing mL/min Estimated GFR (MDRD) ml/min Glucose (74-106) mg/dL Calcium (8.5-10.1) mg/dL Total Bilirubin (0.2-1.0) mg/dL AST (15-37) IU/L ALT (14-63) IU/L Alkaline Phosphatase (46-116) U/L Total Protein (6.4-8.2) g/dL Albumin (3.4-5.0) g/dL Globulin (2.6-4.0) g/dL Albumin/Globulin Ratio (0.9-1.6) HCG, Qual (NEG) Urine Color YELLOW Urine Appearance CLEAR Urine pH 6.0 (5.0-8.0) Ur Specific [place] 1.020 (1.001-1.035) Urine Protein 30 H (NEGATIVE) mg/dL Urine Glucose (UA) NEGATIVE (NEGATIVE) mg/dL Urine Ketones NEGATIVE (NEGATIVE) mg/dL Urine Occult Blood TRACE-INTACT H (NEGATIVE) Urine Nitrite NEGATIVE (NEGATIVE) Urine Bilirubin NEGATIVE (NEGATIVE) Urine Urobilinogen 1.0 (<2.0) EU/dL Ur Leukocyte Esterase NEGATIVE (NEGATIVE) Urine RBC 0-2 (0-2/HPF) Urine WBC 0-1 (0-5/HPF) Ur Epithelial Cells MODERATE (NONE-FEW) Urine Bacteria 1+ H (NEGATIVE) Urine Mucus LIGHT (NONE-MOD) Result Diagrams: 11/20/18 12:24 11/20/18 12:24 Brett Results Last 24 hrs: Microbiology 11/20/18 12:40 Influenza Type A Antigen Screen - Final Nasopharyngeal Swab NEGATIVE INFLUENZA A VIRUS AG REFERENCE RANGE: NEGATIVE Influenza Type B Antigen Screen - Final NEGATIVE INFLUENZA B VIRUS AG REFERENCE RANGE: NEGATIVE Orders Last 24hrs: Active Orders 24 hr Category Date Time Status Patient Status [ADT] Stat ADT 11/20/18 13:47 Active Antiembolic Devices [RC] PER UNIT ROUTINE Care 11/20/18 14:17 Active May Shower [RC] ASDIRECTED Care 11/20/18 14:16 Active Oxygen Therapy [RC] PRN Care 11/20/18 14:16 Active RT Aerosol Therapy [RC] ASDIRECTED Care 11/20/18 14:18 Active RT Incentive Spirometry [RC] Q1HWA Care 11/20/18 14:16 Active Up ad Charmaine [RC] ASDIRECTED Care 11/20/18 14:16 Active VTE/DVT Education [RC] PER UNIT ROUTINE Care 11/20/18 14:16 Active Vital Signs [RC] Q4H Care 11/20/18 14:16 Active Regular Diet [DIET] Diet 11/20/18 Lunch Active CBC WITH AUTO DIFF [HEME] AM Lab 11/21/18 05:11 Ordered COMPREHENSIVE METABOLIC PN,CMP [CHEM] AM Lab 11/21/18 05:11 Ordered CULTURE BLOOD [BC] Stat Lab 11/20/18 13:00 Received CULTURE BLOOD [BC] Stat Lab 11/20/18 13:17 Received CULTURE SPUTUM + SMEAR [RM] Stat Lab 11/20/18 14:16 Ordered MAGNESIUM [CHEM] AM Lab 11/21/18 05:11 Ordered Acetaminophen [Tylenol] Med 11/20/18 14:16 Active 650 mg PO Q4H PRN Albuterol/Ipratropium [DuoNeb 3.0-0.5 MG/3 ML] Med 11/20/18 14:16 Active 3 ml NEB Q4HRRT PRN Benzonatate [Tessalon Perles] Med 11/20/18 15:07 Active 100 mg PO BEDTIME PRN Ibuprofen [Motrin] Med 11/20/18 14:16 Active 400 mg PO Q6H PRN Levofloxacin/Dextrose 5%-Water [Levaquin in D5W 750 MG/ Med 11/21/18 14:15 Active 150 ML] 750 mg Premix Bag 1 bag IV Q24H Norethindrone AC-Eth Estradiol [Norethind-Eth Estrad 1- Med 11/20/18 18:00 Ordered 0.02 mg] 1 each PO ASDIRECTED Ondansetron [Zofran] Med 11/20/18 14:16 Active 4 mg IVPUSH Q4H PRN SUMAtriptan [Imitrex] Med 11/20/18 15:53 Active 50 mg PO Q2H PRN Sodium Chloride 0.9% [Normal Saline] 1,000 ml Med 11/20/18 15:15 Active IV Q8H Sodium Chloride 0.9% [Saline Flush] Med 11/20/18 12:24 Active 10 ml FLUSH ASDIRECTED PRN Sodium Chloride 0.9% [Saline Flush] Med 11/20/18 12:24 Active 2.5 ml FLUSH ASDIRECTED PRN Blood Culture x2 Reflex Set [OM.PC] Stat Oth 11/20/18 12:24 Ordered Saline Lock Insert [OM.PC] Stat Oth 11/20/18 12:23 Ordered Sequential Compression Device [OM.PC] Per Unit Routine Oth 11/20/18 14:16 Ordered Resuscitation Status Routine Resus Stat 11/20/18 14:16 Ordered Medication Orders Acetaminophen (Tylenol) 650 mg PO Q4H PRN PRN Reason: Pain (Mild 1-3)/fever Albuterol/Ipratropium (Duoneb 3.0-0.5 Mg/3 Ml) 3 ml NEB Q4HRRT PRN PRN Reason: Shortness Of Breath/wheezing Benzonatate (Tessalon Perles) 100 mg PO BEDTIME PRN PRN Reason: Cough Levofloxacin/Dextrose 750 mg/ (Premix) 150 mls @ 100 mls/hr IV Q24H GABBIE Sodium Chloride (Normal Saline) 1,000 mls @ 125 mls/hr IV Q8H GABBIE Last Admin: 11/20/18 15:22 Dose: 125 mls/hr Ibuprofen (Motrin) 400 mg PO Q6H PRN PRN Reason: Pain (mild 1-3) Non-Formulary Medication (Norethindrone Ac-Eth Estradiol [Norethind-Eth Estrad 1 -0.02 Mg]) 1 each PO ASDIRECTED GABBIE Ondansetron HCl (Zofran) 4 mg IVPUSH Q4H PRN PRN Reason: Nausea Sodium Chloride (Saline Flush) 10 ml FLUSH ASDIRECTED PRN PRN Reason: Keep Vein Open Last Admin: 11/20/18 12:46 Dose: 10 ml Sodium Chloride (Saline Flush) 2.5 ml FLUSH ASDIRECTED PRN PRN Reason: Keep Vein Open Last Admin: 11/20/18 12:46 Dose: 2.5 ml Sumatriptan Succinate (Imitrex) 50 mg PO Q2H PRN PRN Reason: migraine Last Admin: 11/20/18 16:21 Dose: 50 mg
[2018-11-20] MEDS ORDERED: Benzonatate 100 MG Cap PO PRN (15:07)
[2018-11-20] MEDS: Sodium Chloride 0.9% 1,000 ML IV SCH (15:22)
[2018-11-20] MEDS: SUMAtriptan 50 MG Tab PO PRN ×2 (16:21→19:12)
[2018-11-20] MEDS ORDERED: Codeine/Promethazine 10-6.25 MG/5 ML Syrup 5 ML UD Cup PO PRN (18:13)
[2018-11-21] MEDS: Sodium Chloride 0.9% 1,000 ML IV SCH ×2 (00:10→08:32)
[2018-11-21 06:34] LABS: BLOOD UREA NITROGEN,BUN 6 mg/dL (7.0-18.0); CARBON DIOXIDE,CO2 24.2 mmol/L (21.0-32.0); CHLORIDE,CL 105 mmol/L (98-107); GLUCOSE RANDOM 99 mg/dL (74-106); POTASSIUM,K 3.6 mmol/L (3.5-5.1); SODIUM,NA 141 mmol/L (136-145)
[2018-11-21] MEDS ORDERED: Magnesium Sulfate/Water 4 GM in Premix Bag 1 BAG IV ONE (07:47)
--- NOTE | 2018-11-21 08:20 | PCM.DCSUM1 ---
<Miranda Oropeza M - Last Filed: 11/21/18 09:31> Discharge Summary - Hospital Course Brief History: This 38 year old female with no significant medical history presented to the ED today with concerns of headache, coughing, N/V and generally feeling unwell. She reports this symptoms started approximately a week ago with sinus congestion, ear pain, sore throat. This has progressed to wheezing in her chest, coughing. She reports she was seen in the ED 2 days ago, given antibiotics and discharged home. She took meds for 2 days, but then this morning started throwing up when she woke up. She then started having a bad headache, which is all over her head, moved down her neck and in her ear. She reported some blurred vision during the headache, but after Toradol in the ED she is feeling much better. She reports one migraine headache in her life, last year which felt the same. She reports no stiff neck. Mild sore throat with hoarse voice, coughing and wheezing. Non productive cough though. She reports nausea and vomiting this morning. No abdominal or flank pain. No chest pain or palpitations. No urinary concerns, though she mentions a couple days ago there was some burning. Reports being otherwise healthy. Former smoker, quit 5 years ago. No vaping history. No alcohol or recreational drug use. No history of HTN, CAD, DM or asthma or COPD. In the ED CBC WNL. BMP WNL. Influenza negative. lactic acid 1.0. BC obtained and pending. CXR revealed nodular consolidation to L lung base. HR elevated 100-110s, BP stable. She was treated with Levaquin 500 mg, Morphine, Toradol and NS bolus. She was admitted with CAP. Diagnosis: Stroke: No - Discharge Data Discharge Date: 11/21/18 Discharge Disposition: Home, Self-Care 01 Condition: Stable - Referral to Home Health Primary Care Physician: PCP None - Discharge Diagnosis/Problem(s) (1) Left lower lobe pneumonia SNOMED Code(s): 686748008 ICD Code: J18.1 - LOBAR PNEUMONIA, UNSPECIFIED ORGANISM Status: Acute Current Visit: Yes Qualifiers: Pneumonia type: due to unspecified organism Qualified Code(s): J18.1 - Lobar pneumonia, unspecified organism - Patient Instructions Diet: Usual Diet as Tolerated Activity: No Strenuous Activities Showering/Bathing: May Shower Notify Provider of: Fever, Increased Pain, Swelling and Redness, Drainage, Nausea and/or Vomiting - Discharge Plan *PRESCRIPTION DRUG MONITORING PROGRAM REVIEWED*: Not Applicable *COPY OF PRESCRIPTION DRUG MONITORING REPORT IN PATIENT CODY: Not Applicable Prescriptions/Med Rec: Benzonatate [Tessalon Perle] 100 mg PO TID PRN #30 capsule PRN Reason: Cough Levofloxacin [Levaquin] 750 mg PO DAILY #5 tablet Home Medications: Home Meds Norethindrone AC-Eth Estradiol [Norethind-Eth Estrad 1-0.02 mg] 1 each PO ASDIRECTED 11/20/18 [History] Benzonatate [Tessalon Perle] 100 mg PO TID PRN #30 capsule 11/21/18 [Rx] Levofloxacin [Levaquin] 750 mg PO DAILY #5 tablet 11/21/18 [Rx] Oxygen Therapy Mode: Room Air Patient Handouts: Levofloxacin tablets, Benzonatate capsules Referrals: PCP,None [Primary Care Provider] - (follow up with PCP in 1 week) Crystal Gutierrez NP [Nurse Practitioner] - 11/28/18 9:00 am - Discharge Summary/Plan Comment DC Time >30 min.: No Discharge Summary/Plan Comment: Admitting Diagnoses: CAP Migraine Discharge Diagnoses: CAP Migraine Betty was admitted secondary to CAP. She was unable to keep po medications down at home when she was diagnoses 2 days prior to sinusitis in the ED. She continued to have fevers and worsening cough. She also reported a frontal headache, with photophobia and light sensitivity. She denied neck pain. She has been up ambulating and eating well. She was treated with Levaquin 750 mg IV. She was also given Imitrex for headache with mild relief. She was also given Toradol, Benadryl and Reglan for headache. She is eager to go home today. She will continue on Levaquin for 5 more days. She is to relax over the weekend, drink plenty of fluids and return to the ED or clinic if concerns should arise. She is to follow up with PCP in 1 week. - General Info Date of Service: 11/21/18 Admission Dx/Problem (Free Text: Admission Diagnosis/Problem Admission Diagnosis/Problem Pneumonia Subjective Update: Laying in bed, reports mild frontal headache. No chest pain. Voice continues to be hoarse, with dry cough. No sputum production. No abdominal pain or urinary concerns. Asking for discharge. Functional Status: Reports: Pain Controlled, Urinating - Review of Systems General: Reports: Malaise. Denies: Fever HEENT: Reports: Headaches, Sinus Congestion, Sore Throat Pulmonary: Reports: Cough. Denies: Shortness of Breath, Sputum, Wheezing Cardiovascular: Reports: No Symptoms. Denies: Chest Pain Gastrointestinal: Reports: No Symptoms. Denies: Abdominal Pain, Nausea, Vomiting Genitourinary: Reports: No Symptoms. Denies: Dysuria, Frequency, Burning Musculoskeletal: Reports: No Symptoms Skin: Reports: No Symptoms Neurological: Reports: No Symptoms Psychiatric: Reports: No Symptoms - Patient Data Vitals - Most Recent: Last Vital Signs Temp 97.9 F 11/21/18 07:40 Pulse 88 11/21/18 07:40 Resp 16 11/21/18 07:40 BP 116/70 11/21/18 07:40 Pulse Ox 96 11/21/18 07:40 Weight - Most Recent: 81.647 kg I&O - Last 24 hours: Intake & Output 11/20/18 11/21/18 11/21/18 22:59 06:59 14:59 Intake Total 2921 Output Total 2150 Balance 771 Lab Results - Last 24 hrs: Laboratory Results - last 24 hr 11/20/18 11/20/18 11/20/18 Range/Units 12:24 12:24 12:24 WBC 7.38 (4.0-11.0) K/uL RBC 4.42 (4.30-5.90) M/uL Hgb 12.5 (12.0-16.0) g/dL Hct 36.7 (36.0-46.0) % MCV 83.0 (80.0-98.0) fL MCH 28.3 (27.0-32.0) pg MCHC 34.1 (31.0-37.0) g/dL RDW Std Deviation 39.3 (28.0-62.0) fl RDW Coeff of Juleit 13 (11.0-15.0) % Plt Count 269 (150-400) K/uL MPV 9.70 (7.40-12.00) fL Neut % (Auto) 83.4 H (48.0-80.0) % Lymph % (Auto) 8.3 L (16.0-40.0) % Dawson % (Auto) 6.9 (0.0-15.0) % Eos % (Auto) 1.1 (0.0-7.0) % Baso % (Auto) 0.3 (0.0-1.5) % Neut # (Auto) 6.2 H (1.4-5.7) K/uL Lymph # (Auto) 0.6 (0.6-2.4) K/uL Dawson # (Auto) 0.5 (0.0-0.8) K/uL Eos # (Auto) 0.1 (0.0-0.7) K/uL Baso # (Auto) 0.0 (0.0-0.1) K/uL Nucleated RBC % 0.0 /100WBC Nucleated RBCs # 0 K/uL Lactate (0.20-2.00) mmol/L Sodium 137 (136-145) mmol/L Potassium 3.6 (3.5-5.1) mmol/L Chloride 102 (98-107) mmol/L Carbon Dioxide 22.4 (21.0-32.0) mmol/L BUN 7 (7.0-18.0) mg/dL Creatinine 0.8 (0.6-1.0) mg/dL Est Cr Clr Drug Dosing 83.14 mL/min Estimated GFR (MDRD) > 60.0 ml/min Glucose 111 H (74-106) mg/dL Calcium 9.5 (8.5-10.1) mg/dL Magnesium (1.8-2.4) mg/dL Total Bilirubin 0.2 (0.2-1.0) mg/dL AST 53 H (15-37) IU/L ALT 56 (14-63) IU/L Alkaline Phosphatase 102 (46-116) U/L Total Protein 7.2 (6.4-8.2) g/dL Albumin 2.9 L (3.4-5.0) g/dL Globulin 4.3 H (2.6-4.0) g/dL Albumin/Globulin Ratio 0.7 L (0.9-1.6) HCG, Qual NEGATIVE (NEG) Urine Color Urine Appearance Urine pH (5.0-8.0) Ur Specific [place] (1.001-1.035) Urine Protein (NEGATIVE) mg/dL Urine Glucose (UA) (NEGATIVE) mg/dL Urine Ketones (NEGATIVE) mg/dL Urine Occult Blood (NEGATIVE) Urine Nitrite (NEGATIVE) Urine Bilirubin (NEGATIVE) Urine Urobilinogen (<2.0) EU/dL Ur Leukocyte Esterase (NEGATIVE) Urine RBC (0-2/HPF) Urine WBC (0-5/HPF) Ur Epithelial Cells (NONE-FEW) Urine Bacteria (NEGATIVE) Urine Mucus (NONE-MOD) 11/20/18 11/20/18 11/21/18 Range/Units 12:53 15:05 05:25 WBC 5.22 (4.0-11.0) K/uL RBC 3.85 L (4.30-5.90) M/uL Hgb 10.7 L (12.0-16.0) g/dL Hct 32.4 L (36.0-46.0) % MCV 84.2 (80.0-98.0) fL MCH 27.8 (27.0-32.0) pg MCHC 33.0 (31.0-37.0) g/dL RDW Std Deviation 40.5 (28.0-62.0) fl RDW Coeff of Juliet 13 (11.0-15.0) % Plt Count 242 (150-400) K/uL MPV 9.60 (7.40-12.00) fL Neut % (Auto) 65.4 (48.0-80.0) % Lymph % (Auto) 22.4 (16.0-40.0) % Dawson % (Auto) 10.3 (0.0-15.0) % Eos % (Auto) 1.5 (0.0-7.0) % Baso % (Auto) 0.4 (0.0-1.5) % Neut # (Auto) 3.4 (1.4-5.7) K/uL Lymph # (Auto) 1.2 (0.6-2.4) K/uL [place] # (Auto) 0.5 (0.0-0.8) K/uL Eos # (Auto) 0.1 (0.0-0.7) K/uL Baso # (Auto) 0.0 (0.0-0.1) K/uL Nucleated RBC % 0.0 /100WBC Nucleated RBCs # 0 K/uL Lactate 1.0 (0.20-2.00) mmol/L Sodium (136-145) mmol/L Potassium (3.5-5.1) mmol/L Chloride (98-107) mmol/L Carbon Dioxide (21.0-32.0) mmol/L BUN (7.0-18.0) mg/dL Creatinine (0.6-1.0) mg/dL Est Cr Clr Drug Dosing mL/min Estimated GFR (MDRD) ml/min Glucose (74-106) mg/dL Calcium (8.5-10.1) mg/dL Magnesium (1.8-2.4) mg/dL Total Bilirubin (0.2-1.0) mg/dL AST (15-37) IU/L ALT (14-63) IU/L Alkaline Phosphatase (46-116) U/L Total Protein (6.4-8.2) g/dL Albumin (3.4-5.0) g/dL Globulin (2.6-4.0) g/dL Albumin/Globulin Ratio (0.9-1.6) HCG, Qual (NEG) Urine Color YELLOW Urine Appearance CLEAR Urine pH 6.0 (5.0-8.0) Ur Specific [place] 1.020 (1.001-1.035) Urine Protein 30 H (NEGATIVE) mg/dL Urine Glucose (UA) NEGATIVE (NEGATIVE) mg/dL Urine Ketones NEGATIVE (NEGATIVE) mg/dL Urine Occult Blood TRACE-INTACT H (NEGATIVE) Urine Nitrite NEGATIVE (NEGATIVE) Urine Bilirubin NEGATIVE (NEGATIVE) Urine Urobilinogen 1.0 (<2.0) EU/dL Ur Leukocyte Esterase NEGATIVE (NEGATIVE) Urine RBC 0-2 (0-2/HPF) Urine WBC 0-1 (0-5/HPF) Ur Epithelial Cells MODERATE (NONE-FEW) Urine Bacteria 1+ H (NEGATIVE) Urine Mucus LIGHT (NONE-MOD) 11/21/18 Range/Units 05:25 WBC (4.0-11.0) K/uL RBC (4.30-5.90) M/uL Hgb (12.0-16.0) g/dL Hct (36.0-46.0) % MCV (80.0-98.0) fL MCH (27.0-32.0) pg MCHC (31.0-37.0) g/dL RDW Std Deviation (28.0-62.0) fl RDW Coeff of Juliet (11.0-15.0) % Plt Count (150-400) K/uL MPV (7.40-12.00) fL Neut % (Auto) (48.0-80.0) % Lymph % (Auto) (16.0-40.0) % Dawson % (Auto) (0.0-15.0) % Eos % (Auto) (0.0-7.0) % Baso % (Auto) (0.0-1.5) % Neut # (Auto) (1.4-5.7) K/uL Lymph # (Auto) (0.6-2.4) K/uL [place] # (Auto) (0.0-0.8) K/uL Eos # (Auto) (0.0-0.7) K/uL Baso # (Auto) (0.0-0.1) K/uL Nucleated RBC % /100WBC Nucleated RBCs # K/uL Lactate (0.20-2.00) mmol/L Sodium 141 (136-145) mmol/L Potassium 3.6 (3.5-5.1) mmol/L Chloride 105 (98-107) mmol/L Carbon Dioxide 24.2 (21.0-32.0) mmol/L BUN 6 L (7.0-18.0) mg/dL Creatinine 0.9 (0.6-1.0) mg/dL Est Cr Clr Drug Dosing 73.90 mL/min Estimated GFR (MDRD) > 60.0 ml/min Glucose 99 (74-106) mg/dL Calcium 8.7 (8.5-10.1) mg/dL Magnesium 1.4 L (1.8-2.4) mg/dL Total Bilirubin 0.2 (0.2-1.0) mg/dL AST 33 (15-37) IU/L ALT 41 (14-63) IU/L Alkaline Phosphatase 84 (46-116) U/L Total Protein 6.1 L (6.4-8.2) g/dL Albumin 2.4 L (3.4-5.0) g/dL Globulin 3.7 (2.6-4.0) g/dL Albumin/Globulin Ratio 0.7 L (0.9-1.6) HCG, Qual (NEG) Urine Color Urine Appearance Urine pH (5.0-8.0) Ur Specific [place] (1.001-1.035) Urine Protein (NEGATIVE) mg/dL Urine Glucose (UA) (NEGATIVE) mg/dL Urine Ketones (NEGATIVE) mg/dL Urine Occult Blood (NEGATIVE) Urine Nitrite (NEGATIVE) Urine Bilirubin (NEGATIVE) Urine Urobilinogen (<2.0) EU/dL Ur Leukocyte Esterase (NEGATIVE) Urine RBC (0-2/HPF) Urine WBC (0-5/HPF) Ur Epithelial Cells (NONE-FEW) Urine Bacteria (NEGATIVE) Urine Mucus (NONE-MOD) MEGHNA Results - Last 24 hrs: Microbiology 11/20/18 12:40 Influenza Type A Antigen Screen - Final Nasopharyngeal Swab NEGATIVE INFLUENZA A VIRUS AG REFERENCE RANGE: NEGATIVE Influenza Type B Antigen Screen - Final NEGATIVE INFLUENZA B VIRUS AG REFERENCE RANGE: NEGATIVE Med Orders - Current: Current Medications Acetaminophen (Tylenol) 650 mg PO Q4H PRN PRN Reason: Pain (Mild 1-3)/fever Albuterol/Ipratropium (Duoneb 3.0-0.5 Mg/3 Ml) 3 ml NEB Q4HRRT PRN PRN Reason: Shortness Of Breath/wheezing Benzonatate (Tessalon Perles) 100 mg PO BEDTIME PRN PRN Reason: Cough Last Admin: 11/20/18 20:35 Dose: 100 mg Diphenhydramine HCl (Benadryl) 25 mg IVPUSH ONETIME ONE Stop: 11/21/18 08:17 Levofloxacin/Dextrose 750 mg/ (Premix) 150 mls @ 100 mls/hr IV Q24H GABBIE Sodium Chloride (Normal Saline) 1,000 mls @ 125 mls/hr IV Q8H GABBIE Last Admin: 11/21/18 00:10 Dose: 125 mls/hr Magnesium Sulfate 4 gm/ Premix 100 mls @ 33.333 mls/hr IV ONETIME ONE Stop: 11/21/18 10:46 Ibuprofen (Motrin) 400 mg PO Q6H PRN PRN Reason: Pain (mild 1-3) Ketorolac Tromethamine (Toradol) 30 mg IVPUSH ONETIME ONE Stop: 11/21/18 08:17 Metoclopramide HCl (Reglan) 10 mg IVPUSH ONETIME ONE Stop: 11/21/18 08:17 Ondansetron HCl (Zofran) 4 mg IVPUSH Q4H PRN PRN Reason: Nausea Norethindrone Ac-Eth Estradiol [ Norethind-Eth Estrad 1-0.02 Mg] 1 each PO DAILY GABBIE Promethazine HCl/Codeine (Phenergan With Codeine) 5 ml PO Q4HR PRN PRN Reason: Cough Last Admin: 11/20/18 19:13 Dose: 5 ml Sodium Chloride (Saline Flush) 10 ml FLUSH ASDIRECTED PRN PRN Reason: Keep Vein Open Last Admin: 11/20/18 12:46 Dose: 10 ml Sodium Chloride (Saline Flush) 2.5 ml FLUSH ASDIRECTED PRN PRN Reason: Keep Vein Open Last Admin: 11/20/18 12:46 Dose: 2.5 ml Discontinued Medications Sodium Chloride (Normal Saline) 1,000 mls @ 999 mls/hr IV .Bolus ONE Stop: 11/20/18 13:24 Last Admin: 11/20/18 12:45 Dose: 999 mls/hr Levofloxacin/Dextrose 500 mg/ (Premix) 100 mls @ 100 mls/hr IV ONETIME ONE Stop: 11/20/18 14:41 Last Admin: 11/20/18 13:57 Dose: 100 mls/hr Levofloxacin/Dextrose 250 mg/ (Premix) 50 mls @ 50 mls/hr IV ONETIME ONE Stop: 11/20/18 15:06 Last Admin: 11/20/18 15:42 Dose: 50 mls/hr Sodium Chloride (Normal Saline) 1,000 mls @ 125 mls/hr IV ASDIRECTED GABBIE Pantoprazole Sodium 40 mg/ (Sodium Chloride) 10 mls @ 300 mls/hr IV ONETIME ONE Stop: 11/20/18 14:17 Last Admin: 11/20/18 15:33 Dose: 300 mls/hr Ketorolac Tromethamine (Toradol) 30 mg IVPUSH ONETIME ONE Stop: 11/20/18 12:25 Last Admin: 11/20/18 12:46 Dose: 30 mg Morphine Sulfate (Morphine) 4 mg IVPUSH ONETIME ONE Stop: 11/20/18 13:31 Last Admin: 11/20/18 13:45 Dose: 4 mg Ondansetron HCl (Zofran) 4 mg IVPUSH ONETIME ONE Stop: 11/20/18 13:31 Last Admin: 11/20/18 13:45 Dose: 4 mg Sumatriptan Succinate (Imitrex) 50 mg PO Q2H PRN PRN Reason: migraine Last Admin: 11/20/18 19:12 Dose: 50 mg - Exam General: Reports: Alert, Oriented, Cooperative, No Acute Distress HEENT: Reports: Pupils Equal, Pupils Reactive, Mucous Membr. Moist/[place] Neck: Reports: Other (no nuchal rigidity) Lungs: Reports: Normal Respiratory Effort, Crackles (faint crackles to LL base, improved) Cardiovascular: Reports: Regular Rate, Regular Rhythm GI/Abdominal Exam: Normal Bowel Sounds, Soft, Non-Tender Extremities: Normal Inspection, Normal Range of Motion, Non-Tender, No Pedal Edema Neurological: Reports: No New Focal Deficit Psy/Mental Status: Reports: Alert, Normal Affect, Normal Mood <Jamarcus Burleson - Last Filed: 11/21/18 10:52> Discharge Summary - Hospital Course Free Text/Narrative:: I have seen and examined the patient independently of medical office worker, Dr. Alex MD. I have reviewed and agree with the plan of care as outlined for this patient by him. I have discussed the case with him. Please see orders. - Referral to Home Health Primary Care Physician: PCP None - Patient Data Vitals - Most Recent: Last Vital Signs Temp 36.6 C 11/21/18 07:40 Pulse 88 11/21/18 07:40 Resp 16 11/21/18 07:40 BP 116/70 11/21/18 07:40 Pulse Ox 96 11/21/18 07:40 I&O - Last 24 hours: Intake & Output 11/20/18 11/21/18 11/21/18 22:59 06:59 14:59 Intake Total 2921 Output Total 2150 Balance 771 Lab Results - Last 24 hrs: Laboratory Results - last 24 hr 11/20/18 11/20/18 11/20/18 Range/Units 12:24 12:24 12:24 WBC 7.38 (4.0-11.0) K/uL RBC 4.42 (4.30-5.90) M/uL Hgb 12.5 (12.0-16.0) g/dL Hct 36.7 (36.0-46.0) % MCV 83.0 (80.0-98.0) fL MCH 28.3 (27.0-32.0) pg MCHC 34.1 (31.0-37.0) g/dL RDW Std Deviation 39.3 (28.0-62.0) fl RDW Coeff of Juliet 13 (11.0-15.0) % Plt Count 269 (150-400) K/uL MPV 9.70 (7.40-12.00) fL Neut % (Auto) 83.4 H (48.0-80.0) % Lymph % (Auto) 8.3 L (16.0-40.0) % [place] % (Auto) 6.9 (0.0-15.0) % Eos % (Auto) 1.1 (0.0-7.0) % Baso % (Auto) 0.3 (0.0-1.5) % Neut # (Auto) 6.2 H (1.4-5.7) K/uL Lymph # (Auto) 0.6 (0.6-2.4) K/uL [place] # (Auto) 0.5 (0.0-0.8) K/uL Eos # (Auto) 0.1 (0.0-0.7) K/uL Baso # (Auto) 0.0 (0.0-0.1) K/uL Nucleated RBC % 0.0 /100WBC Nucleated RBCs # 0 K/uL Lactate (0.20-2.00) mmol/L Sodium 137 (136-145) mmol/L Potassium 3.6 (3.5-5.1) mmol/L Chloride 102 (98-107) mmol/L Carbon Dioxide 22.4 (21.0-32.0) mmol/L BUN 7 (7.0-18.0) mg/dL Creatinine 0.8 (0.6-1.0) mg/dL Est Cr Clr Drug Dosing 83.14 mL/min Estimated GFR (MDRD) > 60.0 ml/min Glucose 111 H (74-106) mg/dL Calcium 9.5 (8.5-10.1) mg/dL Magnesium (1.8-2.4) mg/dL Total Bilirubin 0.2 (0.2-1.0) mg/dL AST 53 H (15-37) IU/L ALT 56 (14-63) IU/L Alkaline Phosphatase 102 (46-116) U/L Total Protein 7.2 (6.4-8.2) g/dL Albumin 2.9 L (3.4-5.0) g/dL Globulin 4.3 H (2.6-4.0) g/dL Albumin/Globulin Ratio 0.7 L (0.9-1.6) HCG, Qual NEGATIVE (NEG) Urine Color Urine Appearance Urine pH (5.0-8.0) Ur Specific [place] (1.001-1.035) Urine Protein (NEGATIVE) mg/dL Urine Glucose (UA) (NEGATIVE) mg/dL Urine Ketones (NEGATIVE) mg/dL Urine Occult Blood (NEGATIVE) Urine Nitrite (NEGATIVE) Urine Bilirubin (NEGATIVE) Urine Urobilinogen (<2.0) EU/dL Ur Leukocyte Esterase (NEGATIVE) Urine RBC (0-2/HPF) Urine WBC (0-5/HPF) Ur Epithelial Cells (NONE-FEW) Urine Bacteria (NEGATIVE) Urine Mucus (NONE-MOD) 11/20/18 11/20/18 11/21/18 Range/Units 12:53 15:05 05:25 WBC 5.22 (4.0-11.0) K/uL RBC 3.85 L (4.30-5.90) M/uL Hgb 10.7 L (12.0-16.0) g/dL Hct 32.4 L (36.0-46.0) % MCV 84.2 (80.0-98.0) fL MCH 27.8 (27.0-32.0) pg MCHC 33.0 (31.0-37.0) g/dL RDW Std Deviation 40.5 (28.0-62.0) fl RDW Coeff of Juliet 13 (11.0-15.0) % Plt Count 242 (150-400) K/uL MPV 9.60 (7.40-12.00) fL Neut % (Auto) 65.4 (48.0-80.0) % Lymph % (Auto) 22.4 (16.0-40.0) % [place] % (Auto) 10.3 (0.0-15.0) % Eos % (Auto) 1.5 (0.0-7.0) % Baso % (Auto) 0.4 (0.0-1.5) % Neut # (Auto) 3.4 (1.4-5.7) K/uL Lymph # (Auto) 1.2 (0.6-2.4) K/uL [place] # (Auto) 0.5 (0.0-0.8) K/uL Eos # (Auto) 0.1 (0.0-0.7) K/uL Baso # (Auto) 0.0 (0.0-0.1) K/uL Nucleated RBC % 0.0 /100WBC Nucleated RBCs # 0 K/uL Lactate 1.0 (0.20-2.00) mmol/L Sodium (136-145) mmol/L Potassium (3.5-5.1) mmol/L Chloride (98-107) mmol/L Carbon Dioxide (21.0-32.0) mmol/L BUN (7.0-18.0) mg/dL Creatinine (0.6-1.0) mg/dL Est Cr Clr Drug Dosing mL/min Estimated GFR (MDRD) ml/min Glucose (74-106) mg/dL Calcium (8.5-10.1) mg/dL Magnesium (1.8-2.4) mg/dL Total Bilirubin (0.2-1.0) mg/dL AST (15-37) IU/L ALT (14-63) IU/L Alkaline Phosphatase (46-116) U/L Total Protein (6.4-8.2) g/dL Albumin (3.4-5.0) g/dL Globulin (2.6-4.0) g/dL Albumin/Globulin Ratio (0.9-1.6) HCG, Qual (NEG) Urine Color YELLOW Urine Appearance CLEAR Urine pH 6.0 (5.0-8.0) Ur Specific [place] 1.020 (1.001-1.035) Urine Protein 30 H (NEGATIVE) mg/dL Urine Glucose (UA) NEGATIVE (NEGATIVE) mg/dL Urine Ketones NEGATIVE (NEGATIVE) mg/dL Urine Occult Blood TRACE-INTACT H (NEGATIVE) Urine Nitrite NEGATIVE (NEGATIVE) Urine Bilirubin NEGATIVE (NEGATIVE) Urine Urobilinogen 1.0 (<2.0) EU/dL Ur Leukocyte Esterase NEGATIVE (NEGATIVE) Urine RBC 0-2 (0-2/HPF) Urine WBC 0-1 (0-5/HPF) Ur Epithelial Cells MODERATE (NONE-FEW) Urine Bacteria 1+ H (NEGATIVE) Urine Mucus LIGHT (NONE-MOD) 11/21/18 Range/Units 05:25 WBC (4.0-11.0) K/uL RBC (4.30-5.90) M/uL Hgb (12.0-16.0) g/dL Hct (36.0-46.0) % MCV (80.0-98.0) fL MCH (27.0-32.0) pg MCHC (31.0-37.0) g/dL RDW Std Deviation (28.0-62.0) fl RDW Coeff of Juliet (11.0-15.0) % Plt Count (150-400) K/uL MPV (7.40-12.00) fL Neut % (Auto) (48.0-80.0) % Lymph % (Auto) (16.0-40.0) % [place] % (Auto) (0.0-15.0) % Eos % (Auto) (0.0-7.0) % Baso % (Auto) (0.0-1.5) % Neut # (Auto) (1.4-5.7) K/uL Lymph # (Auto) (0.6-2.4) K/uL [place] # (Auto) (0.0-0.8) K/uL Eos # (Auto) (0.0-0.7) K/uL Baso # (Auto) (0.0-0.1) K/uL Nucleated RBC % /100WBC Nucleated RBCs # K/uL Lactate (0.20-2.00) mmol/L Sodium 141 (136-145) mmol/L Potassium 3.6 (3.5-5.1) mmol/L Chloride 105 (98-107) mmol/L Carbon Dioxide 24.2 (21.0-32.0) mmol/L BUN 6 L (7.0-18.0) mg/dL Creatinine 0.9 (0.6-1.0) mg/dL Est Cr Clr Drug Dosing 73.90 mL/min Estimated GFR (MDRD) > 60.0 ml/min Glucose 99 (74-106) mg/dL Calcium 8.7 (8.5-10.1) mg/dL Magnesium 1.4 L (1.8-2.4) mg/dL Total Bilirubin 0.2 (0.2-1.0) mg/dL AST 33 (15-37) IU/L ALT 41 (14-63) IU/L Alkaline Phosphatase 84 (46-116) U/L Total Protein 6.1 L (6.4-8.2) g/dL Albumin 2.4 L (3.4-5.0) g/dL Globulin 3.7 (2.6-4.0) g/dL Albumin/Globulin Ratio 0.7 L (0.9-1.6) HCG, Qual (NEG) Urine Color Urine Appearance Urine pH (5.0-8.0) Ur Specific [place] (1.001-1.035) Urine Protein (NEGATIVE) mg/dL Urine Glucose (UA) (NEGATIVE) mg/dL Urine Ketones (NEGATIVE) mg/dL Urine Occult Blood (NEGATIVE) Urine Nitrite (NEGATIVE) Urine Bilirubin (NEGATIVE) Urine Urobilinogen (<2.0) EU/dL Ur Leukocyte Esterase (NEGATIVE) Urine RBC (0-2/HPF) Urine WBC (0-5/HPF) Ur Epithelial Cells (NONE-FEW) Urine Bacteria (NEGATIVE) Urine Mucus (NONE-MOD) MEGHNA Results - Last 24 hrs: Microbiology 11/20/18 12:40 Influenza Type A Antigen Screen - Final Nasopharyngeal Swab NEGATIVE INFLUENZA A VIRUS AG REFERENCE RANGE: NEGATIVE Influenza Type B Antigen Screen - Final NEGATIVE INFLUENZA B VIRUS AG REFERENCE RANGE: NEGATIVE Med Orders - Current: Current Medications Acetaminophen (Tylenol) 650 mg PO Q4H PRN PRN Reason: Pain (Mild 1-3)/fever Albuterol/Ipratropium (Duoneb 3.0-0.5 Mg/3 Ml) 3 ml NEB Q4HRRT PRN PRN Reason: Shortness Of Breath/wheezing Benzonatate (Tessalon Perles) 100 mg PO BEDTIME PRN PRN Reason: Cough Last Admin: 11/20/18 20:35 Dose: 100 mg Levofloxacin/Dextrose 750 mg/ (Premix) 150 mls @ 100 mls/hr IV Q24H GABBIE Ibuprofen (Motrin) 400 mg PO Q6H PRN PRN Reason: Pain (mild 1-3) Ondansetron HCl (Zofran) 4 mg IVPUSH Q4H PRN PRN Reason: Nausea Norethindrone Ac-Eth Estradiol [ Norethind-Eth Estrad 1-0.02 Mg] 1 each PO DAILY GABBIE Last Admin: 11/21/18 09:12 Dose: 1 each Promethazine HCl/Codeine (Phenergan With Codeine) 5 ml PO Q4HR PRN PRN Reason: Cough Last Admin: 11/20/18 19:13 Dose: 5 ml Sodium Chloride (Saline Flush) 10 ml FLUSH ASDIRECTED PRN PRN Reason: Keep Vein Open Last Admin: 11/20/18 12:46 Dose: 10 ml Sodium Chloride (Saline Flush) 2.5 ml FLUSH ASDIRECTED PRN PRN Reason: Keep Vein Open Last Admin: 11/20/18 12:46 Dose: 2.5 ml Discontinued Medications Diphenhydramine HCl (Benadryl) 25 mg IVPUSH ONETIME ONE Stop: 11/21/18 08:31 Last Admin: 11/21/18 08:46 Dose: 25 mg Sodium Chloride (Normal Saline) 1,000 mls @ 999 mls/hr IV .Bolus ONE Stop: 11/20/18 13:24 Last Admin: 11/20/18 12:45 Dose: 999 mls/hr Levofloxacin/Dextrose 500 mg/ (Premix) 100 mls @ 100 mls/hr IV ONETIME ONE Stop: 11/20/18 14:41 Last Admin: 11/20/18 13:57 Dose: 100 mls/hr Levofloxacin/Dextrose 250 mg/ (Premix) 50 mls @ 50 mls/hr IV ONETIME ONE Stop: 11/20/18 15:06 Last Admin: 11/20/18 15:42 Dose: 50 mls/hr Sodium Chloride (Normal Saline) 1,000 mls @ 125 mls/hr IV ASDIRECTED GABBIE Pantoprazole Sodium 40 mg/ (Sodium Chloride) 10 mls @ 300 mls/hr IV ONETIME ONE Stop: 11/20/18 14:17 Last Admin: 11/20/18 15:33 Dose: 300 mls/hr Sodium Chloride (Normal Saline) 1,000 mls @ 125 mls/hr IV Q8H GABBIE Last Admin: 11/21/18 08:32 Dose: Not Given Magnesium Sulfate 4 gm/ Premix 100 mls @ 33.333 mls/hr IV ONETIME ONE Stop: 11/21/18 10:46 Last Admin: 11/21/18 08:32 Dose: 33.333 mls/hr Ketorolac Tromethamine (Toradol) 30 mg IVPUSH ONETIME ONE Stop: 11/20/18 12:25 Last Admin: 11/20/18 12:46 Dose: 30 mg Ketorolac Tromethamine (Toradol) 30 mg IVPUSH ONETIME ONE Stop: 11/21/18 08:31 Last Admin: 11/21/18 08:47 Dose: 30 mg Metoclopramide HCl (Reglan) 10 mg IVPUSH ONETIME ONE Stop: 11/21/18 08:31 Last Admin: 11/21/18 08:46 Dose: 10 mg Morphine Sulfate (Morphine) 4 mg IVPUSH ONETIME ONE Stop: 11/20/18 13:31 Last Admin: 11/20/18 13:45 Dose: 4 mg Ondansetron HCl (Zofran) 4 mg IVPUSH ONETIME ONE Stop: 11/20/18 13:31 Last Admin: 11/20/18 13:45 Dose: 4 mg Sumatriptan Succinate (Imitrex) 50 mg PO Q2H PRN PRN Reason: migraine Last Admin: 11/20/18 19:12 Dose: 50 mg
[2018-11-21] MEDS ORDERED: Metoclopramide 10 MG/2 ML SDV IVPUSH ONE (08:30)
[2018-11-21] MEDS ORDERED: diphenhydrAMINE 50 MG/ML SDV IVPUSH ONE (08:30)
[2018-11-21] MEDS ORDERED: Ketorolac 30 MG/ML SDV IVPUSH ONE (08:30)
[2018-11-21] MEDS ORDERED: NORETHINDRONE AC ETH ESTRADIOL PO SCH (09:00)
[2018-11-21 11:47] VITALS: BP 101/50; PULSE 87
[2018-11-21] MEDS ORDERED: Levofloxacin/Dextrose 5%-Water 750 MG in Premix Bag 1 BAG IV SCH (14:15)
== END 2018-11-21 13:40 | disposition home or self-care (01) ==
LOC: MW.ED 11:55 → MW.MS 13:47
PROVIDERS: ADMIT Internal Medicine; ATTEND Internal Medicine
DX: J18.1 Lobar pneumonia, unspecified organism (principal); G43.909 Migraine, unspecified, not intractable, without status migrainosus; Z87.891 Personal history of nicotine dependence; Z79.899 Other long term (current) drug therapy
CPT/HCPCS: 36415; 71046; 80053; 81001; 83605; 83735; 84703; 85025; 87040; 87804; 96361; 96374; 96375; 99285; A9270; C9113; J1200; J1885; J1956; J2270; J2405; J2765; J3475; J7040; J7050; 96365; 96366; 96367; 96376; 99284; G0378

== ENCOUNTER 2019-06-27 22:53 | Emergency (ER) | payer MEDICAID ==
[2019-06-27 23:23] VITALS: BP 127/82; PULSE 83
--- NOTE | 2019-06-27 23:33 | EDM.PDOC ---
ED [facility] GENERAL MEDICAL PROBLEM - General Chief Complaint: ENT Problem Stated Complaint: EAR PAIN Time Seen by Provider: 06/27/19 23:53 Source of Information: Reports: Patient History Limitations: Reports: No Limitations - History of Present Illness INITIAL COMMENTS - FREE TEXT/NARRATIVE: Patient is a 39-year-old female no significant past medical history presenting with chief complaint of right-sided ear pain. Duration of pain is been since . Pain does not radiate. Pain is constant. Patient has taken ibuprofen with little relief. Patient does report prior history of ear infections, including "" swimmer's ear. Patient denies any fever. Patient denies any dental pain. Patient denies any trismus. Patient has no history of diabetes and no recent swimming. Patient denies any tinnitus. Patient denies any dizziness. Patient does report using Q-tips in her ear regularly. Pmhx: None Pshx: None Family Hx: noncontributory Smoking history? no Etoh use? none Drug use? none In addition to that documented in the HPI above, the additional ROS was obtained : Constitutional: Denies fevers or chills Eyes: Denies vision changes ENMT: Denies sore throat CV: Denies chest pain Resp: Denies SOB GI: Denies vomiting or diarrhea : Denies painful urination MSK: Denies recent trauma Skin: Denies new rashes Neuro: Denies new numbness or tingling or weakness Endocrine: Denies unexpected weight loss Heme: Denies bleeding disorders I have reviewed the triage vital signs Const: Well nourished, well developed, appears stated age Eyes: PERRL, no conjunctival injection HENT: Demonstrates swelling to the external canal of her right ear. No discharge. No mastoid tenderness or erythema. NCAT, Neck supple without meningismus CV: RRR, Warm, well-perfused extremities RESP: Unlabored respiratory effort MSK: No gross deformities appreciated Skin: Warm, dry. No rashes Neuro: Alert, design director II-XII grossly intact. motor function of extremities grossly intact. Psych: Appropriate mood and affect Assessment and plan: Patient is 39-year-old female with a presentation of right ear pain. Patient no evidence of dental pain or abscess. Likely diagnosis is otitis externa of the right ear. Patient prescribed antibiotics. Patient given return precautions. All questions addressed and answered. Patient agrees with plan. R ear Pain Score (Numeric/FACES): 9 - Related Data Allergies Allergy/AdvReac Type Severity Reaction Status Date / Time No Known Allergies Allergy Verified 06/27/19 23:23 Home Meds: Home Meds Norethindrone AC-Eth Estradiol [Norethind-Eth Estrad 1-0.02 mg] 1 each PO ASDIRECTED 11/20/18 [History] Benzonatate [Tessalon Perle] 100 mg PO TID PRN #30 capsule 11/21/18 [Rx] Levofloxacin [Levaquin] 750 mg PO DAILY #5 tablet 11/21/18 [Rx] Past Medical History - Past Health History Medical/Surgical History: Denies Medical/Surgical History HEENT History: Reports: None. Denies: Hard of Hearing Cardiovascular History: Reports: None. Denies: Afib, Blood Clots/VTE/DVT, CAD, High Cholesterol, Hypertension, [place] Respiratory History: Reports: None. Denies: Asthma, COPD, Sleep Apnea Gastrointestinal History: Reports: None. Denies: GI Bleed Genitourinary History: Reports: None. Denies: Renal Calculus, UTI, Recurrent HAND REAMER History: Reports: Endometriosis, (x4) Musculoskeletal History: Reports: None Neurological History: Reports: None. Denies: CVA, Migraines, TIA Psychiatric History: Reports: None Endocrine/Metabolic History: Reports: Obesity/BMI 30+. Denies: Diabetes, Type II, Hypothyroidism Hematologic History: Reports: None Immunologic History: Reports: None Oncologic (Cancer) History: Reports: None Dermatologic History: Reports: None - Infectious Disease History Infectious Disease History: Reports: Chicken Pox - Past Surgical History Head Surgeries/Procedures: Reports: None HEENT Surgical History: Reports: Oral Surgery Cardiovascular Surgical History: Reports: None Respiratory Surgical History: Reports: None GI Surgical History: Reports: None Female Surgical History: Reports: None Endocrine Surgical History: Reports: None Neurological Surgical History: Reports: None Musculoskeletal Surgical History: Reports: None Oncologic Surgical History: Reports: None Dermatological Surgical History: Reports: None Social & Family History - Family History Family Medical History: Noncontributory Musculoskeletal: Reports: Arthritis Neurological: Reports: Alzheimers Disease Endocrine/Metabolic: Reports: Diabetes, Type I, Diabetes, type II - Caffeine Use Caffeine Use: Reports: None - Living Situation & Occupation Living situation: Reports: ED ROS ENT - Review of Systems Review Of Systems: See Below ED EXAM, ENT - Physical Exam Exam: See Below Course - Vital Signs Last Recorded V/S: Last Vital Signs Temp 36.3 C 06/27/19 23:21 Pulse 83 06/27/19 23:21 Resp 17 06/27/19 23:21 BP 127/82 06/27/19 23:21 Pulse Ox 97 06/27/19 23:21 Departure - Departure Time of Disposition: 23:32 Disposition: Home, Self-Care 01 Clinical Impression: Otitis externa - Discharge Information Instructions: Otitis Externa, [place] Referrals: Tiesha Cavazos MD [Primary Care Provider] - Forms: ED Department Discharge Additional Instructions: The following information is given to patients seen in the emergency department who are being discharged to home. This information is to outline your options for follow-up care. We provide all patients seen in our emergency department with a follow-up referral. The need for follow-up, as well as the timing and circumstances, are variable depending upon the specifics of your emergency department visit. If you don't have a primary care physician on staff, we will provide you with a referral. We always advise you to contact your personal physician following an emergency department visit to inform them of the circumstance of the visit and for follow-up with them and/or the need for any referrals to a consulting specialist. The emergency department will also refer you to a specialist when appropriate. This referral assures that you have the opportunity for follow-up care with a specialist. All of these measure are taken in an effort to provide you with optimal care, which includes your follow-up. Under all circumstances we always encourage you to contact your private physician who remains a resource for coordinating your care. When calling for follow-up care, please make the office aware that this follow-up is from your recent emergency room visit. If for any reason you are refused follow-up, please contact the [facility] Emergency Department at and asked to speak to the emergency department charge nurse. Sepsis Event Note - Evaluation Sepsis Screening Result: No Definite Risk - Focused Exam Vital Signs: Vital Signs Temp Pulse Resp BP Pulse Ox 06/27/19 23:21 36.3 C 83 17 127/82 97 Date Exam was Performed: 06/27/19 Time Exam was Performed: 23:53
== END 2019-06-27 23:53 | disposition home or self-care (01) ==
LOC: MW.ED 22:53
DX: H60.91 Unspecified otitis externa, right ear (principal); E66.9 Obesity, unspecified; Z68.33 Body mass index [BMI] 33.0-33.9, adult; Z79.899 Other long term (current) drug therapy
CPT/HCPCS: 99282